=== PATIENT | female | born 1980 | race Caucasian/White ===

== ENCOUNTER → 2024-04-05 13:55 | Outpatient (BNVA) | payer OTHER, SELFPAY | PROVIDERS: Visit Provider Surgery ==

== ENCOUNTER 2024-06-11 08:00 | Outpatient (AMB) | payer OTHER, SELFPAY ==
--- NOTE | 2024-06-11 13:08 | A.OFFVIS_ITS ---
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*: Details: Start time: 12.57pm, End time: 1.42pm ?I spent 40 minutes speaking with the patient on the phone plus an additional 5 minutes reviewing and updating records for a total of 45 minutes HPI Comments Details: Previous weight loss efforts: self diets Wakes up: 2.30am, Sleeps: 8pm Breakfast: skips occasionnally crackers at 9am Lunch: 2pm (chicken and rice) Dinner: 7pm (bread or cereal) snacks: dinner Exercise: Has a treadmill at home Fluids: Coffee (1 cup/day with milk and sugar), tea: none, soda: regular Coke (2-3 cans per day), juice: none, ETOH: none PFSH Medical History (Updated 06/11/24 @ 13:12 by Sky Hayes MD) Knee pain Morbid obesity Surgical History (Updated 04/12/24 @ 09:16 by Trisha Chung CMA) Hx of section Hx of cholecystectomy Family History (Updated 04/05/24 @ 14:21 by Trisha Chung CMA) Mother Diabetes Father Diabetes Daughter No problems noted. Son Down's syndrome Social History (Updated 04/05/24 @ 14:20 by Trisha Chung CMA) Alcohol intake: never Patient Tobacco Use Status: Never used Tobacco Telehealth Telehealth Telehealth Platform: Telephone Location of provider rendering services: practice address Location of patient: address on file Patient Identification confirmed using: Name, : Yes Telehealth method: voice only Patient verbally consented to treatment: Yes Patient verbally consented to billing insurance company: Yes Patient informed of any privacy concerns related to visit: Yes Minutes spent on Phone/Video with Pt.: 47 Assessment & Plan Assessment & Plan (1) Morbid obesity: Code(s): E66.01 - Morbid (severe) obesity due to excess calories Category: Medical Plan: 1.? Plan for lap sleeve gastrectomy. If diaphragmatic or ventral hernias are present at time of surgery, these will be repaired laparoscopically as well. Risks and complications include possible conversion to an open procedure, anastomotic leak, bleeding requiring transfusion, small bowel obstruction, , DVT and pulmonary embolism, cardiac, or pulmonary complications, as termite exterminator complications such as anastomotic ulcer, insufficient weight loss and vitamin deficiencies. I emphasized the importance of close follow-up, adherence to instructions and good communication. 2. Nutritional counseling. Start with 2 CELEBRATE REBUILD protein (buy at [facility] [employer]) shakes (TWO scoops EACH in 8oz low fat unsweetened almond milk each) at 4am-6am and 7am-9am, 2 protein bars (CELEBRATE protein bars, buy at [facility]) at 10am-12pm, and 1pm-3pm, dinner at 4pm (10 forks of protein and 10 forks of salad/vegetables) AND one more protein bar after dinner at 6pm-8pm. So you do 2 protein shakes, 3 protein bars and one meal per day. Meal to include lean meat (beef, fish, pork, turkey, chicken), or british yogurt, or egg whites, or beans with a salad with olive oil and fruits (berries, pears, apples, kiwi). Avoid salt, breads, potatoes, rice, pasta, desserts. 3. You will receive a link of our software [employer] to generate an individualized nutritional and exercise plan specific for you. Please send me a screenshot of the plans you will generate 3. Each shake would be drunk slowly, like coffee in a period of 2 hours. 4. Cut each bar in 4 pieces and eat each piece in 30min ?to make each bar last 2 hours. 5. I emphasized the importance of measuring accurately the food portion and measure it when serving the food in plate 6. The meal portions include 10 full-size forks of meat and 10 full-size forks of salad. You always eat the meat portion but you can replace up to 5 forks for salad/vegetables with rice, potatoes or pasta, or a fruit ?if you like. The less you do it the better weight loss will be. 7. One full-size fork is what it can be scooped on the fork without falling aside and not what can be bit with the fork. Use regular forks like those you find in a typical restaurant. 8.? Please send me weight measurements as soon as possible and then once a week. Always include your diet and exercise plan. 9. Start treadmill with an incline of 2.0 and speed of 2.5. Increase incline by 1 every 3 min to a max incline of 8.0, stay 3min at 8.0 and then return to 2.0 and repeat same steps until calorie goal is met. Goal is to burn 2000 calories per week on exercise, which means either 300 calories daily, or 400 calories 5 days per week, or 500 calories 4 days per week, or 650 calories 3 days per week. 10.?It is important of avoiding and for at least 18 months postoperatively and has been discussed at the infosession. 11. Goal is to lose at least 1.5-2lbs per week 12. Goal to lose 10% of your weight before surgery, which is about 35lbs. Ultimate weight goal: 318lbs before surgery 13. Please follow the diet plan exactly without any change. If you don't like something about the plan or you feel hungry you need to communicate with me so I can help you revise the plan. You should not change the plan yourself. 14. To be scheduled for EGD to assess the stomach's anatomy. The possibility of biopsies was discussed. Patient needs to avoid use of NSAIDs and aspirin for 1 week prior to EGD. Risks of perforation and bleeding was discussed with the patient. This will be an outpatient procedure with IV sedation. Orders: Orders Hemoglobin A1c Today E66.01 - Morbid (severe) obesity due to excess calories H Pylori Breath Test Today E66.01 - Morbid (severe) obesity due to excess calories IRON PROFILE Today E66.01 - Morbid (severe) obesity due to excess calories Zinc Today E66.01 - Morbid (severe) obesity due to excess calories Vitamin A Today E66.01 - Morbid (severe) obesity due to excess calories TSH reflex Free T4 Today E66.01 - Morbid (severe) obesity due to excess calories Ferritin Today E66.01 - Morbid (severe) obesity due to excess calories XR chest 2V Today E66.01 - Morbid (severe) obesity due to excess calories ECG 12 lead EKG Today E66.01 - Morbid (severe) obesity due to excess calories Insulin Today E66.01 - Morbid (severe) obesity due to excess calories Complete Blood Count Auto Diff Today E66.01 - Morbid (severe) obesity due to excess calories Lipid Panel Today E66.01 - Morbid (severe) obesity due to excess calories Comprehensive Met. Panel Today E66.01 - Morbid (severe) obesity due to excess calories Vitamin B12 and Folate Today E66.01 - Morbid (severe) obesity due to excess calories C Reactive Protein Today E66.01 - Morbid (severe) obesity due to excess calories Vitamin B1 Today E66.01 - Morbid (severe) obesity due to excess calories Vitamin D 25-OH Total Today E66.01 - Morbid (severe) obesity due to excess calories US abdomen comp w elastography Today E66.01 - Morbid (severe) obesity due to excess calories FL upper GI w air Today E66.01 - Morbid (severe) obesity due to excess calories Referrals Nutrition/Dietitian Referral E66.01 - Morbid (severe) obesity due to excess calories Behavioral Health Referral E66.01 - Morbid (severe) obesity due to excess calories
[2024-06-11 13:18] VITALS: BMI 58.8
== END 2024-06-11 13:42 | disposition home or self-care (01) ==
LOC: HO.HBS 08:00
PROVIDERS: Visit Provider Surgery
DX: E66.01 Morbid (severe) obesity due to excess calories (principal)
CPT/HCPCS: 99204

== ENCOUNTER → 2024-06-11 08:00 | Outpatient (BNVA) | payer OTHER, SELFPAY | PROVIDERS: Visit Provider Surgery ==

== ENCOUNTER → 2024-11-08 09:11 | Outpatient (AMB) | payer OTHER, SELFPAY ==
--- NOTE | 2024-11-08 09:05 | MHC.WMTHER ---
Intake Intake Visit Reasons: VIDEO BH Intake Allergies No Known Allergies Allergy (Verified 06/10/24 14:57) PFSH Medical History (Updated 06/11/24 @ 13:12 by Sky Hayes MD) Knee pain Morbid obesity Surgical History (Updated 04/12/24 @ 09:16 by Trisha Chung CMA) Hx of section Hx of cholecystectomy Family History (Updated 04/05/24 @ 14:21 by Trisha Chung CMA) Mother Diabetes Father Diabetes Daughter No problems noted. Son Down's syndrome Social History (Updated 04/05/24 @ 14:20 by Trisha Chung CMA) Alcohol intake: never Patient Tobacco Use Status: Never used Tobacco Behavioral Health Assessment Weight Management Therapy Therapy Notes Details PT is a 44 years old female, who presents for initial visit to complete BH assessment as part of surgical weight loss program. Presenting Concerns Referral Source WMP-Provider. PT had initial visit with Dr. Hong on 05/2024 Reason for referral Completion of behavioral health assessment as part of process for weight-loss surgery. Precipitating Event Obesity. Living Situation Current Living Situation Rent At risk of losing current housing? No Satisfied with current living situation? Yes Comments PT lives with her partner and her 2 y/o son. Food/Weight/Diet Expectations of change The initial goal is to lose 10% of your weight before surgery, which is about 35 lbs. Ultimate weight goal: 318lbs before surgery PT started the program in May/2024 at 353Lbs Recent weight as of 11/03/2024:330Lbs. Patient target weight: 150-160 after surgery. PT wants to be able to lose weight and maintain a healthy weight. She wants to be an active mother for her child and be as healthy as possible to live as long as she can for her child who has Down syndrome and will need extra care and support. PT is implementing the following: Current meal plan: 2 shakes, 3 bars, 1 meal. Most of the days. Exercise plan: None. Scale: Yes communication w/ Provider: Yes/Friday History/Relationship with food Example of meals before starting the program: Breakfast: Lunch: Dinner: Snacks: Drinks/Liquids: History/Relationship with weight In the last 10 years, the patient's Lowest weight was and highest Social History Family history and relationship PT has been with her partner for 20 years, PT has an older daughter who is 25 y/o, and she shares her youngest son who is 2 y/o. Parents are alive, she has 3 siblings, 1 sister, 1 brother on her father's side, and 1 adopted brother who is actually a cousin. She moved to [place] with her closest family, her parents, sister w/ her . They live close and are pro-family and have great communication and relationships. 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 Developmental history and status None reported. Social support Partner, parents, siblings, daughter. Community support None. Restoration/Spirituality [employer]. Cultural/Ethnic information , from [place]. Moved to [place] 5 years ago. Legal Involvement and History Current or historical involvement with the legal system? None reported. Education Highest grade completed HS diploma and 2 Associate degree. 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 ) Wants help to find employment? No Meaningful activities crafts and republican planning, listening to podcast, reading. Financial Situation Describe current financial situation Comfortable Financial assistance? SSI (for her son.) Service Service? No Mental Health and Addiction Treatment Current/Past substance abuse? No Comments Alcohol: None Cigarettes/Tobacco: None Cannabis/Edibles: None Current/Past addictive behavior concerns? No Psychiatric history The patient denies any history of mental health treatment, including counseling, crisis intervention, or inpatient care. They also report never having been prescribed psychiatric medications. There is no current or past concern regarding suicidal ideation (SI), suicidal attempts (SA), self-harm, or harm to others. Medical and Physical Health Summary Additional Medical History not covered in history None reported Sexual History concerns None reported. Physical exam in the last year? No (During . ) Pain Screening Current pain? Yes Pain in the last few months? Yes Comments knee pain. Medications Is the patient compliant with medications? Not applicable Does the patient have Forrester Guardian in place? Not applicable Does the patient use complimentary health approaches? No Trauma/Abuse History History of trauma? No Questionnaires PHQ-9 Over the last 2 weeks, how often have you been bothered by any of the following problems? 1. Little interest or pleasure in doing things: nearly every day 2. Feeling down, depressed, or hopeless: not at all 3. Trouble falling or staying asleep, or sleeping too much: not at all 4. Feeling tired or having little energy: nearly every day 5. Poor appetite or overeating: several days 6. Feeling bad about yourself - or that you are a failure or have let yourself or your family down: not at all 7. Trouble concentrating on things, such as reading the newspaper or watching television: not at all 8. Moving or speaking so slowly that other people could have noticed. Or the opposite - being so fidgety or restless that you have been moving around a lot more than usual: not at all 9. Thoughts that you would be better off or of hurting yourself in some way: not at all Total score: 7 Depression Screening Interpretation: Positive (From new PT pack scanned on . New one will be administered in next visit. ) Depression Screening Done: Yes Source: Developed by Drs. Moses Vizcaino, Kamryn Gong, Benjamin Enriquez and colleagues, with an educational abhay from [employer]. Binge Eating Scale Group 1 A. I don't feel self-conscious about my wt. or body size when I'm with others. B. I feel concerned about how I look to others, but it normally does not make me fell disappointed with myself C. I do get self-conscious about my appearance and wt. which makes me feel disappointed in myself. D. I feel very self-conscious about my wt. and frequently I feel intense shame and disgust for myself. I try to avoid social contacts because of my self-consciousness. Response Group 1: B Group 2 A. I don't have any difficulty eating slowly in the proper manner. B. Although I seem to gobble down foods, I don't end up feeling stuffed because of eating to much. C. At times, I tend to eat quickly and then, I feel uncomfortably full afterwards. D. I have the habit of bolting down my food, without really chewing it. When this happens I usually feel uncomfortably stuffed because I've eaten to much. Response Group 2: A Group 3 A. I feel capable to control my eating urges when I want to. B. I feel like I have failed to control my eating more than the average person. C. I feel utterly helpless when it comes to feeling in control of my eating urges. D. Because I feel so helpless about controlling my eating I have become very desperate about trying to get control. Response Group 3: B Group 4 A. I don't have the habit of eating when I'm bored. B. I sometimes eat when I'm bored, but often I'm able to get busy and get my mind off food. C. I have a regular habit of eating when I'm bored, but occasionally, I can use some other activity to get my mind off eating. D. I have a strong habit of eating when I'm bored. Nothing seems to help me breath the habit. Response Group 4: B Group 5 A. I'm usually physically hungry when I eat something. B. Occasionally, I eat something on impulse even though I really am not hungry. C. I have the regular habit of eating foods, that I might not really enjoy, to satisfy a hungry feeling even though physically, I don't need the food. D. Although I'm not physically hungry, I get a hungry feeling in my mouth that only seems to be satisfied when I eat a food, like sandwich, that fills my mouth. Sometimes, when I eat the food to satisfy my mouth hunger, I then spit the food out so I won't gain weight. Response Group 5: B Group 6 A. I don't feel any guilt or self-hate after I overeat. B. After I overeat, occasionally I feel guilt or self-hate. C. Almost all the time I experience strong guilt or self-hate after I overeat. Response Group 6: A Group 7 A. I don't lose total control of my eating when dieting even after periods when I overeat. B. Sometimes when I eat a forbidden food on a diet, I feel like I blew it and eat even more. C. Frequently, I have the habit of saying to myself, I've blown it now, why not go all the way, when I overeat on a diet. When that happens I eat more. D. I have a regular habit of starting a strict diets for myself but I break the diets by going on an eating binge. My life seems to be either a feast or famine. Response Group 7: A Group 8 A. I rarely eat so much food that I feel uncomfortably stuffed afterwards. B. Usually about once a month, I each such a quantity of food, I end up feeling very stuffed. C. I have regular periods during the month when I eat large amounts of food, either at mealtime or at snacks. D. I eat so much food that I regularly feel quite uncomfortable after eating and sometimes a bit nauseous. Response Group 8: C Group 9 A. My level of calorie intake does not go up very high or go down very low on a regular basis. B. Sometimes after I overeat, I will try to reduce my caloric intake to almost nothing to compensate for the excess calories I've eaten. C. I have a regular habit of overeating during the night. It seems that my routine is not to be hungry in the morning but overeat in the evening. D. In my adult years, I have had week-long periods where I practically starve myself. This follows periods when I overeat. It seems I live a life of either feast or famine. Response Group 9: C Group 10 A. I usually am able to stop eating when I want to. I know when enough is enough. B. Every so often, I experience a compulsion to eat which I can't seem to control. C. Frequently, I experience strong urges to eat which I seem unable to control, but at other times I can control my eating urges. D. I feel incapable of controlling urges to eat. I have a fear of not being able to stop eating voluntarily. Response Group 10: A Group 11 A. I don't have any problem stopping eating when I feel full. B. I usually can stop eating when I feel full but occasionally overeat leaving me feeling uncomfortably stuffed. C. I have a problem stopping eating once I start and usually I feel uncomfortably stuffed after I eat a meal. D. Because I have a problem not being able to stop eating when I want, I sometimes have to induce vomiting to relieve my stuffed feeling. Response Group 11: A Group 12 A. I seem to eat just as much when I'm with others, Family social gatherings as when I'm by myself. B. Sometimes, when I'm with other persons, I don't eat as much as I want to eat because I'm self-conscious about my eating. C. Frequently, I eat only a small amount of food when others are present, because I'm very embarrassed about my eating. D. I feel so ashamed about overeating that I pick times to overeat when I know no one will see me. I feel like a closet eater. Response Group 12: A Group 13 A. I eat three meals a day with only an occasional between meal snack. B. I eat 3 meals a day, but I also normally snack between meals. C. When I am snacking heavily, I get in the habit of skipping regular meals. D. There are regular periods when I seem to be continually eating, with no planned meals. Response Group 13: D Group 14 A. I don't think much about trying to control unwanted eating urges. B. At least some of the time, I feel my thoughts are pre-occupied with trying to control my eating urges. C. I feel that frequently I spend much time thinking about how much I ate or about trying not to eat anymore. D. It seems to me that most of my waking hours are pre-occupied by thoughts about eating or not eating. I feel like I'm constantly struggling not to eat. Response Group 14: A Group 15 A. I don't think about food a great deal. B. I have strong craving for food but they last only for brief periods of time. C. I have days when I can't seem to think about anything else but food. D. Most of my days seem to be pre-occupied with thoughts about food. I feel like I live to eat. Response Group 15: A Group 16 A. I usually know whether or not I'm physically hungry. I take the right portion of food to satisfy me. B. Occasionally, I feel uncertain about knowing whether or not I'm physically hungry. A these times it's hard to know how much food I should take to satisfy me. C. Even though I might know how many calories I should eat, I don't have any idea what is a normal amount of food for me. Response Group 16: C Binge Eating Score: 13 Score less than 17 Minimal Risk Score between 18-26 Moderate Risk Score between 27-46 High Risk Assessment & Plan Assessment & Plan (1) Morbid obesity: Code(s): E66.01 - Morbid (severe) obesity due to excess calories (2) Adjustment disorder, unspecified: Code(s): F43.20 - Adjustment disorder, unspecified (3) Problems related to inappropriate diet and eating habits: Code(s): Z72.4 - Inappropriate diet and eating habits Plan The patient is not yet cleared and will return in two weeks to continue the behavioral health assessment. A new PHQ-9 will be administered to ensure accurate results. Next bienvenido: 11/22/2024 at 9am, Telehealth Telehealth Telehealth [facility]health [facility] Location of provider rendering services: other Location of patient: address on file Patient Identification confirmed using: Name, : Yes Telehealth method: voice only Patient verbally consented to treatment: Yes Patient verbally consented to billing insurance company: Yes Patient informed of any privacy concerns related to visit: Yes Coding Level of Care Code New Pt Tele Psy Diag Brigido ([id number]) Patient Type New Diagnoses Morbid obesity E66.01 Adjustment disorder, unspecified F43.20 Problems related to inappropriate diet and eating habits Z72.4 Time Spent (min) 55
--- OUTSIDE RECORDS SUMMARY | 2024-11-08 09:47 | XMS_ITS | Continuity of Care Document ---
Author Organization [facility] vices Address [address] [place] [address] Phone Care Team Providers Care Development System Efficiency Manager Name Role Phone Unavailable Unavailable Unavailable Procedures Procedure Date OFFICE/OUTPT Visit EST-EPFHx,EPFExam, Lo w MDM 15 Minutes Advance Directives Directive Yes / No Effective Date File Name No Information Encounters Encounter Description Practice Location Reason(s) For Visit Diagnoses Date Provider Providers Copied on Encounter OFFICE/OUTPT Visit EST-EPFHx,EPF Exam, Low MDM 15 Minutes [facility], [address] [place] [address], [id number], [place] tel:[phone] [facility] Podiatry Heel Pain (chief complaint) Body mass index (BMI) 50-59.9 , adultPlantar fascial fibromatosis 0 No Information Family History Family Member Type Diagnosis Age At Onset No Information Payers Payer name Insurance type Covered democrat ID Authoriza tion(s) Self Pay ins [id number] [...]
--- OUTSIDE RECORDS SUMMARY | 2024-11-08 09:47 | XMS_ITS | Clinical Summary ---
Author Organization [employer] Address [address] [place] [address] [address] [place] [address] Care Team Providers Care Cargo Router Name Role Phone Olivia Almaguer VEE Primary Care Provider [phone] Medications Alcohol Swabs (Alcohol Pads) 70 % pads USE TO CHECK BLOOD SUGARS 4 TIMES A DAY. 2 Active acetaminophen (Tylenol 8 Hour) 650 MG ER tablet Take 650 mg by mouth every 8 (eight) hours if needed. 2 Active Aspirin Low Dose 81 MG EC tablet Take 162 mg by mouth in the morning. 2 Active FREESTYLE LITE test strip USE TO CHECK BLOOD SUGARS 4 TIMES A DAY. 2 Active ibuprofen 800 MG tablet Take 800 mg by mouth every 8 (eight) hours. 2 Active FreeStyle lancets USE TO CHECK BLOOD SUGARS 4 TIMES A DAY. 2 Active oxyCODONE (Oxy-IR) 5 MG immediate release capsule TAKE 1 CAPSULE BY MOUTH EVERY 6 HOURS NEEDED FOR PAIN 2 Active Vit-Fe Fumarate-FA (PNV Plus Multivitamin) 27-1 MG tablet Take 1 tablet by mouth at bed time. 1 Active Vit-Fe Fumarate-FA (M- Plus) 27-1 MG tablet Take 1 tablet by mouth in the morning. 2 Active Senna-Time 8.6 MG tablet TAKE 2 TABLET BY MOUTH DAILY AT BEDTIME NEEDED FOR CONSTIPATION 2 Active Immunizations Name Administration Dates Next Due Influenza injectable quadrivalent preservative f ree 07/23/2021 Pfizer Covid-19 Vaccine 12+ 07/23/2021 Social History Tobacco Use Types Packs/Day Years Used Date Smoking Tobacco: Never Assessed Housing Stability Answer Date Recorded What is your housing situation today? I have latanya herbert 05/24/[address] you li ve. Do you have problems with any of the following? None of the above 05/24/2024 Food Insecurity Answer Date Recorded Within the past 12 months, y ou worried that your food would run out before you got money to buy more: Never True 05/24/2024 Within the past 12 months,th e food you bought just didn't last and you didn't have enough money to get more: Never True Transportation Answer Date Recorded In the past 12 months, has l ack of transportation kept you from medical appts, meetings, work or from getting things needed for daily living? No 05/24/2024 Utilities Answer Date Recorded In the past 12 months, has t he electric, gas, oil or water company threatened to shut off services in your home? No 05/24/2024 Internet Access Answer Date Recorded Internet Access Q1 Yes 05/24/2024 Internet Access Q2 Not on file 05/24/2024 Comments Unknown Sex and Gender Information Value Date Recorded Sex Assigned at Female 06/24/2022 10:37 AM EDT Legal Sex Female 10:37 AM EDT Gender Identity Female 06/24/2022 10:37 AM EDT Sexual Orientation Straight 06/24/2022 10 :37 AM EDT Last Filed Vital Signs Vital Sign Reading Time Taken Comments Blood Pressure 112/80 07/23/2021 12:11 AM EST Pulse 84 07/23/2021 12:11 AM EST Temperature - - Respiratory Rate - - Oxygen Saturation - - Inhaled Oxygen Concentration - - Weight 155 kg (341 lb 6.3 oz) 07/23/2021 12:11 A M EST Height - - Body Mass Index - - Plan of Treatment Health Maintenance Due Date Last Done Comments Depression Screening 1982 Alcohol/Substance Use Screening 1994 Tobacco Screening 1994 Family Planning (PISQ) 1997 Hepatitis C Screening 2000 DTaP/Tdap/Td Vaccines (1 - Tdap) 2001 Hepatitis B Vaccines (1 of 3 - 19+ 3-dose series) 2001 Mammogram 2022 Pap Smear 12/15/2023 12/14/2020 COVID-19 Vaccine (2 - 2023-2 5 season) 2024 07/23/2021 Influenza Vaccine (#1) 2024 07/23/2021 SDOH Screening 05/24/2025 05/24/2024 Cervical Cancer Screening 12/14/2025 HPV/Cotest 12/14/2025 12/14/2020 Zoster Vaccines (1 of 2) 2032 RSV Patients and Pa tients Aged 60 years or older (1 - 1-dose 75+ series) 2057 HIV Screening Completed 12/14/2020 HIB Vaccines Aged Out No longer eligi ble based on patient's age to complete this topic HPV Vaccines Aged Out No longer eligi ble based on patient's age to complete this topic Hepatitis A Vaccines Aged Out No long er eligible based on patient's age to complete this topic IPV Vaccines Aged Out No longer eligi ble based on patient's age to complete this topic Meningococcal Vaccine Aged Out No liyah rina eligible based on patient's age to complete this topic Pneumococcal Vaccine: Pediat rics (0 to 5 Years) and At-Risk Patients (6 to 49) Years) Aged Out No longer elig ible based on patient's age to complete this topic RSV under 20 months Aged Out No longe r eligible based on patient's age to complete this topic Rotavirus Vaccines Aged Out No longer eligible based on patient's age to complete this topic Procedures Procedure Name Priority Date/Time Associated Diagnosis Comments HPV MRNA E6/E7 Routine 12/14/2020 9:14 AM EDT THINPREP IMAGING SYSTEM PAP Routine 12/14/2020 9:14 AM EDT HIV 1/2 ANTIGEN/ANTIBODY, FOURTH GENERATION W/RFL Routine 12/14/2020 8:06 AM EDT from Last 3 Months or Most Recently Relevant to Health Maintenance Results * THINPREP TIS PAP (12/14/2020 9:14 AM EDT) Clinical Information: None given [facility] COMMENT SEE COMMENT [facility] Comment: EXPLANATORY NOTE: ? The Pap is a screening test for cervical cancer. It is ?? not a diagnostic test and is subject to false negative ?? and false positive results. It is most reliable when a ?? satisfactory sample, regularly obtained, is submitted ?? with relevant clinical findings and history, and when ?? the Pap result is evaluated along with historic and ?? current clinical information. ?? COMMENT: This Pap test has been evaluated with computer assisted technology. [facility] Rack Cleaner : SEE COMMENT [facility] Comment: CMG, CT(ASCP) CT screening location: [address] ??[id number] Interpretation/R esult: Negative for intraepithelial lesion or malignancy. [facility] LMP: NONE GIVEN [facility] Prev. BX: NONE [facility]IVEN [facility] Prev. PAP: NONE GIVEN [facility] Review Rack Cleaner : SEE COMMENT [facility] Comment: NSS, CT(ASCP) CT screening location: [address] ??[id number] SOURCE: None given [facility] Statement Of Adequacy: SEE COMMENT [facility] Comment: Satisfactory for evaluation. Endocervical/transformation zone component present. Age and/or menstrual status not provided 12/14/2020 9:14 AM EDT Nadia Fong MD LAB PATHOLOGY ORDERABLES Celsa dutta Result [facility] [address] * HPV mRNA E6/E7 (12/14/2020 9:14 AM EDT) HPV nRNA E6/E7 Not Detected Not Detected [facility] Comment: Methodology: Client Technical Specialist-Mediated Amplification This assay detects E6/E7 viral messenger RNA (mRNA) from 14 high-risk HPV types (16,18,31,33,35,39,45,51,52,56,58,59,66,68). ? The analytical performance characteristics of this assay have been determined by [employer]. The modifications have not been cleared or approved by the FDA. This assay has been validated pursuant to the CLIA regulations and is used for clinical purposes. ?? For additional information, please refer to http://[employer].CropUp/faq/ZEE256p8 (This link if provided for information/ educational purposes only.) 12/14/2020 9:14 AM EDT Nadia Fong MD LAB BLOOD ORDERABLES Final Re sult Performing Organization Address [facility] Phone Number [facility] [address] * HIV 1/2 ANTIGEN/ANTIBODY,FOURTH GENERATION W/RFL (12/14/2020 8:06 AM EDT) HIV-1/2 ANTIGEN AND ANTIBODIES, 4TH GENERATION W/ REFLEX NON-REACT MEHRAN NON-REACT MEHRAN [facility] Comment: HIV-1 antigen and HIV-1/HIV-2 antibodies were not detected. There is no laboratory evidence of HIV infection. ?? PLEASE NOTE: This information has been disclosed to you from records whose confidentiality may be protected by state law. ??If your state requires such protection, then the state law prohibits you from making any further disclosure of the information without the specific written consent of the person to whom it pertains, or as otherwise permitted by law. A general authorization for the release of medical or other information is NOT sufficient for this purpose. ? For additional information please refer to http://[email or web address].protected-networks.com/faq/GMX704 (This link is being provided for informational/ educational purposes only.) ? The performance of this assay has not been clinically validated in patients less than 2 years old. ?? 12/14/2020 8:06 AM EDT Nadia Fong MD LAB BLOOD ORDERABLES Final Re sult Performing Organization Address [facility] de Phone Number [facility] [address] from Last 3 Months or Most Recently Relevant to Health Maintenance Insurance [place] C3 Care Teams Cargo Router Relationship Specialty Start Date End Date Olivia Almaguer NP [address] [place] [id number] PCP - General Family Medicine 09/23/23
== END ==
LOC: HO.HBST 09:11
PROVIDERS: Visit Provider Counselor Mental Health
DX: E66.01 Morbid (severe) obesity due to excess calories (principal); F43.20 Adjustment disorder, unspecified; Z72.4 Inappropriate diet and eating habits
CPT/HCPCS: 90791

== ENCOUNTER → 2024-11-22 09:17 | Outpatient (AMB) | payer SELFPAY ==
--- NOTE | 2024-11-22 09:05 | A.OFFWM_ITS ---
Intake Intake Visit Reasons: VIDEO Intake Part 2 Allergies No Known Allergies Allergy (Verified 11/08/24 16:08) [facility] Medical History (Updated 06/11/24 @ 13:12 by Sky Hayes MD) Knee pain Morbid obesity Surgical History (Updated 04/12/24 @ 09:16 by Trisha Chung CMA) Hx of section Hx of cholecystectomy Family History (Updated 04/05/24 @ 14:21 by Trisha Chung CMA) Mother Diabetes Father Diabetes Daughter No problems noted. Son Down's syndrome Social History (Updated 04/05/24 @ 14:20 by Trisha Chung CMA) Alcohol intake: never Patient Tobacco Use Status: Never used Tobacco Behavioral Health Assessment Weight Management Therapy Therapy Notes Details The patient is a 44-year-old female presenting for her second visit to complete a behavioral health (BH) assessment as part of a surgical weight loss program. The patient expresses interest in weight loss surgery to improve her overall health. Her goal is to lose weight and maintain a healthy weight in order to be an active and engaged mother for her child. She emphasizes the importance of maintaining good health to support her child, who has Down syndrome and will require ongoing care and support. The patient denies any history of mental health treatment, past hospitalizations, or behavioral health crises. She also reports no history of, or current concerns related to, suicidal ideation (SI), suicidal attempts (SA), self-harm, or harm to others. There is no reported history of substance use. Additionally, the patient does not demonstrate signs of stress-related emotional eating, and her scores on the Binge Eating Scale (BES) suggest a low risk for binge eating behavior. The PHQ-9 scores show no active symptoms of depression. A mental status examination indicates that the patient?s cognitive and emotional functioning is within normal limits, suggesting no impairment in daily functioning. At this time, the patient is cleared from a behavioral health standpoint. Presenting Concerns Referral Source WMP-Provider. PT had initial visit with Dr. Hong on 05/2024 Reason for referral Completion of behavioral health assessment as part of process for weight-loss surgery. Precipitating Event Obesity. Living Situation Current Living Situation Rent At risk of losing current housing? No Satisfied with current living situation? Yes Comments PT lives with her partner and her 2 y/o son. Food/Weight/Diet Expectations of change The initial goal is to lose 10% of your weight before surgery, which is about 35 lbs. Ultimate weight goal: 318lbs before surgery PT started the program in May/2024 at 353Lbs Recent weight as of 11/03/2024:330Lbs. Weight as of 11/18/2024: 323Lbs Patient target weight: 150-160 after surgery. PT wants to be able to lose weight and maintain a healthy weight. She wants to be an active mother for her child and be as healthy as possible to live as long as she can for her child who has Down syndrome and will need extra care and support. PT is implementing the following: Current meal plan: 2 shakes, 3 bars, 1 meal. Most of the days. Exercise plan: has a treadmill. Scale: Yes communication w/ Provider: Yes/Friday History/Relationship with food PT reports she used to skip meals most days, and was having a big meal around 3pm. Also would drink soda all day and would be snaking on sweets all day. PT states when she feels stressed she tends to put something on her mouth. As a she tend to have multiple carbs in 1 meal. Example of meals before starting the program: Breakfast: skip. If not, then would had ham and cheese sandwich (about 1/2 Lbs of bread) Lunch: skip. Dinner: @3pm Rice/beans/meat, pasta, soups. Snacks: honeybuns, Oreo cookies, Cheetos. Drinks/Liquids: 2 2Lt bottle of soda at day. 3 coffees at day with milk and sugar. (1 cup at 3am, another at noon and then around 3pm) When working she has 3 breaks, she she would eat the followinam break: a coke and a honeybun. 9am break: a coke and a pack of Oreos or Cheetos 11am break: 1 coke and Cheetos History/Relationship with weight PT denies being overweight or obese in childhood and At age 18 she was around 130-140Lbs She started gaining substantial weight around 19 y/o when she got with first child. In the last 10 years, the patient's Lowest weight was 330Lbs about 6 years ago however she is currently 232Lbs as of today and highest 360Lbs History/Relationship with dieting Food swaps. Self-diets, would lose 5Lbs in 1-2 weeks, then after not losing anymore would stop the diet. Binge Eating Do you frequently eat large amounts of food in short periods of time, not fee ling physically hungry? No Do you feel out of control when you eat a large amount of food in a short period of time? No Do you eat large amounts of food rapidly and typically alone? No Night Eating Do you wake up at least once during the night to eat? No If you wake up in the night, do you find that it is necessary to eat something in order to fall back asleep? No Do you have little or no appetite in the morning and feel very hungry in the evening, often overeating between dinner and when you go to bed? Yes Social History Family history and relationship PT has been with her partner for 20 years, PT has an older daughter who is 25 y/o, and she shares her youngest son who is 2 y/o. Parents are alive, she has 3 siblings, 1 sister, 1 brother on her father's side, and 1 adopted brother who is actually a cousin. She moved to [place] with her closest family, her parents, sister w/ her . They live close and are pro-family and have great communication and relationships. 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 Developmental history and status None reported. Social support Partner, parents, siblings, daughter. Community support None. Tenriism/Spirituality [employer]ec[employer]. Cultural/Ethnic information , from [place]. Moved to [place] 5 years ago. Legal Involvement and History Current or historical involvement with the legal system? None reported. Education Highest grade completed HS diploma and 2 Associate degree. 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 ) Wants help to find employment? No Meaningful activities crafts and green party planning, listening to podcast, reading. Financial Situation Describe current financial situation Comfortable Financial assistance? SSI (for her son.) Service Service? No Mental Health and Addiction Treatment Current/Past substance abuse? No Comments Alcohol: None Cigarettes/Tobacco: None Cannabis/Edibles: None Current/Past addictive behavior concerns? No Psychiatric history The patient denies any history of mental health treatment, including counseling, crisis intervention, or inpatient care. They also report never having been prescribed psychiatric medications. There is no current or past concern regarding suicidal ideation (SI), suicidal attempts (SA), self- harm, or harm to others. Medical and Physical Health Summary Additional Medical History not covered in history None reported Sexual History concerns None reported. Physical exam in the last year? No (During . ) Pain Screening Current pain? Yes Pain in the last few months? Yes Comments knee pain. Medications Is the patient compliant with medications? Not applicable Does the patient have Forrester Guardian in place? Not applicable Does the patient use complimentary health approaches? No Trauma/Abuse History History of trauma? No Questionnaires PHQ-9 Over the last 2 weeks, how often have you been bothered by any of the following problems? 1. Little interest or pleasure in doing things: not at all 2. Feeling down, depressed, or hopeless: not at all 3. Trouble falling or staying asleep, or sleeping too much: not at all 4. Feeling tired or having little energy: not at all 5. Poor appetite or overeating: not at all 6. Feeling bad about yourself - or that you are a failure or have let yourself or your family down: not at all 7. Trouble concentrating on things, such as reading the newspaper or watching television: not at all 8. Moving or speaking so slowly that other people could have noticed. Or the opposite - being so fidgety or restless that you have been moving around a lot more than usual: not at all 9. Thoughts that you would be better off or of hurting yourself in some way: not at all Total score: 0 Depression Screening Interpretation: Negative Depression Screening Done: Yes 07007 - PHQ-9 Billing: Yes Source: Developed by Drs. Moses Vizcaino, Kamryn Gong, Benjamin Enriquez and colleagues, with an educational abhay from [employer]. Binge Eating Scale Group 1 A. I don't feel self-conscious about my wt. or body size when I'm with others. B. I feel concerned about how I look to others, but it normally does not make me fell disappointed with myself C. I do get self-conscious about my appearance and wt. which makes me feel dis appointed in myself. D. I feel very self-conscious about my wt. and frequently I feel intense shame and disgust for myself. I try to avoid social contacts because of my self-c onsciousness. Response Group 1: B Group 2 A. I don't have any difficulty eating slowly in the proper manner. B. Although I seem to gobble down foods, I don't end up feeling stuffed because of eating to much. C. At times, I tend to eat quickly and then, I feel uncomfortably full afterwards. D. I have the habit of bolting down my food, without really chewing it. When this happens I usually feel uncomfortably stuffed because I've eaten to much. Response Group 2: A Group 3 A. I feel capable to control my eating urges when I want to. B. I feel like I have failed to control my eating more than the average person. C. I feel utterly helpless when it comes to feeling in control of my eating urges. D. Because I feel so helpless about controlling my eating I have become very desperate about trying to get control. Response Group 3: B Group 4 A. I don't have the habit of eating when I'm bored. B. I sometimes eat when I'm bored, but often I'm able to get busy and get my mind off food. C. I have a regular habit of eating when I'm bored, but occasionally, I can use some other activity to get my mind off eating. D. I have a strong habit of eating when I'm bored. Nothing seems to help me breath the habit. Response Group 4: B Group 5 A. I'm usually physically hungry when I eat something. B. Occasionally, I eat something on impulse even though I really am not hungry. C. I have the regular habit of eating foods, that I might not really enjoy, to satisfy a hungry feeling even though physically, I don't need the food. D. Although I'm not physically hungry, I get a hungry feeling in my mouth that only seems to be satisfied when I eat a food, like sandwich, that fills my mouth. Sometimes, when I eat the food to satisfy my mouth hunger, I then spit the food out so I won't gain weight. Response Group 5: B Group 6 A. I don't feel any guilt or self-hate after I overeat. B. After I overeat, occasionally I feel guilt or self-hate. C. Almost all the time I experience strong guilt or self-hate after I overeat. Response Group 6: A Group 7 A. I don't lose total control of my eating when dieting even after periods when I overeat. B. Sometimes when I eat a forbidden food on a diet, I feel like I blew it and eat even more. C. Frequently, I have the habit of saying to myself, I've blown it now, why not go all the way, when I overeat on a diet. When that happens I eat more. D. I have a regular habit of starting a strict diets for myself but I break the diets by going on an eating binge. My life seems to be either a feast or famine. Response Group 7: A Group 8 A. I rarely eat so much food that I feel uncomfortably stuffed afterwards. B. Usually about once a month, I each such a quantity of food, I end up feeling very stuffed. C. I have regular periods during the month when I eat large amounts of food, either at mealtime or at snacks. D. I eat so much food that I regularly feel quite uncomfortable after eating and sometimes a bit nauseous. Response Group 8: C Group 9 A. My level of calorie intake does not go up very high or go down very low on a regular basis. B. Sometimes after I overeat, I will try to reduce my caloric intake to almost nothing to compensate for the excess calories I've eaten. C. I have a regular habit of overeating during the night. It seems that my routine is not to be hungry in the morning but overeat in the evening. D. In my adult years, I have had week-long periods where I practically starve myself. This follows periods when I overeat. It seems I live a life of either feast or famine. Response Group 9: C Group 10 A. I usually am able to stop eating when I want to. I know when enough is enough. B. Every so often, I experience a compulsion to eat which I can't seem to control. C. Frequently, I experience strong urges to eat which I seem unable to control, but at other times I can control my eating urges. D. I feel incapable of controlling urges to eat. I have a fear of not being able to stop eating voluntarily. Response Group 10: A Group 11 A. I don't have any problem stopping eating when I feel full. B. I usually can stop eating when I feel full but occasionally overeat leaving me feeling uncomfortably stuffed. C. I have a problem stopping eating once I start and usually I feel uncomfortably stuffed after I eat a meal. D. Because I have a problem not being able to stop eating when I want, I sometimes have to induce vomiting to relieve my stuffed feeling. Response Group 11: A Group 12 A. I seem to eat just as much when I'm with others, Family social gatherings as when I'm by myself. B. Sometimes, when I'm with other persons, I don't eat as much as I want to eat because I'm self-conscious about my eating. C. Frequently, I eat only a small amount of food when others are present, because I'm very embarrassed about my eating. D. I feel so ashamed about overeating that I pick times to overeat when I know no one will see me. I feel like a closet eater. Response Group 12: A Group 13 A. I eat three meals a day with only an occasional between meal snack. B. I eat 3 meals a day, but I also normally snack between meals. C. When I am snacking heavily, I get in the habit of skipping regular meals. D. There are regular periods when I seem to be continually eating, with no planned meals. Response Group 13: D Group 14 A. I don't think much about trying to control unwanted eating urges. B. At least some of the time, I feel my thoughts are pre-occupied with trying to control my eating urges. C. I feel that frequently I spend much time thinking about how much I ate or about trying not to eat anymore. D. It seems to me that most of my waking hours are pre-occupied by thoughts about eating or not eating. I feel like I'm constantly struggling not to eat. Response Group 14: A Group 15 A. I don't think about food a great deal. B. I have strong craving for food but they last only for brief periods of time. C. I have days when I can't seem to think about anything else but food. D. Most of my days seem to be pre-occupied with thoughts about food. I feel like I live to eat. Response Group 15: A Group 16 A. I usually know whether or not I'm physically hungry. I take the right portion of food to satisfy me. B. Occasionally, I feel uncertain about knowing whether or not I'm physically hungry. A these times it's hard to know how much food I should take to satisfy me. C. Even though I might know how many calories I should eat, I don't have any idea what is a normal amount of food for me. Response Group 16: C Binge Eating Score: 13 Score less than 17 Minimal Risk Score between 18-26 Moderate Risk Score between 27-46 High Risk Assessment & Plan Assessment & Plan (1) Morbid obesity: Code(s): E66.01 - Morbid (severe) obesity due to excess calories (2) Adjustment disorder, unspecified: Code(s): F43.20 - Adjustment disorder, unspecified (3) Problems related to inappropriate diet and eating habits: Code(s): Z72.4 - Inappropriate diet and eating habits Plan The patient has been cleared from a behavioral health standpoint and is ready for submission. She is scheduled to return for follow-up in 2 to 4 weeks post- op. Telehealth Telehealth Telehealth Platform: [facility] Location of provider rendering services: practice address Location of patient: address on file Patient Identification confirmed using: Name, : Yes Telehealth method: voice only Patient verbally consented to treatment: Yes Patient informed of any privacy concerns related to visit: Yes Minutes spent on Phone/Video with Pt.: 45 Coding Level of Care Code Established Pt Tele Psytx 45 mins (79236) Patient Type Established Diagnoses Morbid obesity E66.01 Adjustment disorder, unspecified F43.20 Problems related to inappropriate diet and eating habits Z72.4 Additional Codes PHQ-9 - 60877 - PHQ-9 Billing: Yes ([id number]) Time Spent (min) 45
== END ==
PROVIDERS: Visit Provider Counselor Mental Health
DX: F43.20 Adjustment disorder, unspecified (principal); Z72.4 Inappropriate diet and eating habits; E66.01 Morbid (severe) obesity due to excess calories
CPT/HCPCS: 90834

== ENCOUNTER 2025-01-07 08:44 | Outpatient (REF) | payer OTHER, SELFPAY ==
--- NOTE | ~2025-01-07 | US_ITS ---
EXAMINATION: US ABDOMEN COMPLETE WITH LIVER ELASTOGRAPHY HISTORY: E66.01 - Morbid (severe) obesity due to excess calories TECHNIQUE: Real-time grayscale ultrasound imaging of the abdomen was performed and images were reviewed. COMPARISON: There are no prior studies for comparison. FINDINGS: Liver: The right lobe of the liver measures 18.2 cm in size. The left lobe of the liver measures 11.5 cm in size. The liver demonstrates mildly increased echotexture, consistent with steatosis. No focal mass or intrahepatic biliary ductal dilatation is identified. There is normal hepatopedal flow in the portal vein. Ultrasound elastography of the liver was performed with 10 separate measurements of the liver parenchyma with the patient in the supine position. Measurements were obtained approximately 2 cm below [employer]'s capsule and perpendicular to the capsule. Images are of satisfactory quality. The median shear wave velocity is 1.69 m/s. The interquartile range/median (IQR/median) is 0.05. Gallbladder and biliary tree: The gallbladder is surgically absent. The common bile duct is normal in caliber measuring 3 mm. Kidneys: The right kidney measures 11.1 cm in length. The left kidney measures 12.1 cm in length. The kidneys are unremarkable, without evidence of masses, hydronephrosis, or calculi. Pancreas: The pancreatic head, neck, and body are unremarkable. The pancreatic tail is obscured by bowel gas. Spleen: The spleen is normal in size and contour, measuring 11.5 cm in length. Abdominal aorta and inferior vena cava: The visualized portions of the abdominal aorta and inferior vena cava are normal in caliber. There is no free fluid in the abdomen. US/US abdomen comp w elastography IMPRESSION: Hepatomegaly and mild hepatic steatosis. The median shear wave velocity in the liver is 1.69 m/s, corresponding to a median liver stiffness of 8.74 kPa. The IQR/median value is 0.05. This is indicative of a quality data set. Findings are indicative of a low elastography value which rules out advanced chronic liver disease in asymptomatic patients. REFERENCE: Society of Radiologists in Ultrasound Liver Stiffness Thresholds (2019): LIVER STIFFNESS THRESHOLDS: *Shear wave velocity less than 1.3 m/s (Liver Stiffness equal or less than 5 kPa): High probability of being normal. *Shear wave velocity less than 1.7 m/s (Liver Stiffness less than 9 kPa): In the absence of other known clinical signs, rules out compensated advanced chronic liver disease. *Shear wave velocity between 1.7-2.1 m/s (Liver Stiffness 9-13 kPa): Suggestive of compensated advanced chronic liver disease but need further test for confirmation. *Shear wave velocity between 2.1-2.4 m/s (Liver Stiffness 13-17 kPa): Rules in compensated advanced chronic liver disease. *Shear wave velocity greater than 2.4 m/s (Liver Stiffness over 17 kPa): Suggestive of clinically significant portal hypertension. QUALITY OF DATA SET: *IQR/Median value equal or less than 0.15 implies a quality data set. *IQR/Median value over 0.15 implies a poor quality data set. SIGNIFICANT CHANGE FROM PRIOR EXAM: Significant change if liver stiffness measurement is 10% or greater from prior exam. OTHER CONSIDERATIONS: The stage of liver fibrosis may be overestimated in the setting of acute hepatitis, liver inflammation, elevated liver function tests, hepatic vascular congestion, obstructive cholestasis, non-fasting state, and infiltrative diseases such as amyloidosis and lymphoma. In some patients with NAFLD, the liver stiffness thresholds for compensated advanced chronic liver disease may be lower. In causes other than viral hepatitis and NAFLD, liver stiffness thresholds are not well established. Electronically signed by: Moses Ibarra MD 01/07/2025 09:53 AM EDT
--- NOTE | ~2025-01-07 | XR_ITS ---
EXAMINATION: XR CHEST 2 VIEWS HISTORY: E66.01 - Morbid (severe) obesity due to excess calories COMPARISON: There are no prior studies for comparison. FINDINGS: PA and lateral views of the chest are submitted. There is increased density superimposed on the spine on the lateral view suggestive of lower lobe pneumonia. This is not well visualized on the PA view. There is no pleural effusion, pneumothorax, or pulmonary vascular congestion. The heart is normal in size. There is degenerative disc disease of the spine. XR/XR chest 2V IMPRESSION: Possible lower lobe pneumonia, best seen on the lateral view. Follow-up is recommended to document resolution. Electronically signed by: Moses Ibarra MD 01/07/2025 10:25 AM EDT
--- OUTSIDE RECORDS SUMMARY | 2025-01-07 09:00 | XMS_ITS | Continuity of Care Document ---
Author Organization [facility] Address [address] [place] [address] Phone Care Team Providers Care Wharf Tender Helper Name Role Phone Unavailable Unavailable Unavailable Procedures Procedure Date OFFICE/OUTPT Visit EST-EPFHx,EPFExam, Lo w MDM 15 Minutes Advance Directives Directive Yes / No Effective Date File Name No Information Encounters Encounter Description Practice Location Reason(s) For Visit Diagnoses Date Provider Providers Copied on Encounter OFFICE/OUTPT Visit EST-EPFHx,EPF Exam, Low MDM 15 Minutes [facility], [address] [place] [address], [address], [place] tel:[phone] [facility] Podiatry Heel Pain (chief complaint) Body mass index (BMI) 50-59.9 , adultPlantar fascial fibromatosis 0 No Information Family History Family Member Type Diagnosis Age At Onset No Information Payers Payer name Insurance type Covered libertarian ID Authoriza tion(s) Self Pay ins 09 [...]
--- OUTSIDE RECORDS SUMMARY | 2025-01-07 09:00 | XMS_ITS | Clinical Summary ---
Author Organization [facility] Address [address] [facility] 7[address] [place] [address] Care Team Providers Care Top Installer Name Role Phone Olivia Almaguer VEE Primary Care Provider [phone] Medications Alcohol Swabs (Alcohol Pads) 70 % [...] at bed time. 1 Active Vit-Fe Fumarate-FA (M-Davide Plus) 27-1 MG tablet Take 1 tablet by mouth in the morning. 2 Active Senna-Time 8.6 MG tablet TAKE 2 TABLET BY MOUTH DAILY AT BEDTIME NEEDED FOR CONSTIPATION 2 Active Immunizations Immunization Administration Dates Next Due Influenza injectable quadrivalent [...] patient's age to complete this topic Meningococcal B Vaccine Aged Out No l onger eligible based on patient's age to complete [...] has been evaluated with computer assisted technology. [facility] Mix Technician : SEE COMMENT [facility] Comment: CMG, CT(ASCP) CT screening location: [address] ??[id number] Interpretation/R esult: Negative for intraepithelial lesion or malignancy. [facility] LMP: NONE GIVEN [facility] Prev. BX: NONE [facility]IVEN [facility] Prev. PAP: NONE GIVEN [facility] Review Mix Technician : SEE COMMENT [facility] Comment: NSS, CT(ASCP) CT screening location: [address] ??[id number] SOURCE: None given [facility] Statement Of Adequacy: SEE COMMENT [facility] Comment: Satisfactory for evaluation. Endocervical/transformation zone component present. Age and/or menstrual status not provided 12/14/2020 9:14 AM EDT Nadia Fong MD LAB PATHOLOGY ORDERABLES Celsa dutta Result [facility] [address] * HPV mRNA E6/E7 (12/14/2020 9:14 AM EDT) HPV nRNA E6/E7 Not Detected Not Detected [facility] Comment: Methodology: Lacquer Coater-Mediated Amplification This assay detects E6/E7 viral messenger RNA (mRNA) from 14 high-risk HPV types (16,18,31,33,35,39,45,51,52,56,58,59,66,68). ? The analytical performance characteristics of this assay have been determined by [employer]. The modifications have not been cleared or approved by the FDA. This assay has been validated pursuant to the CLIA regulations and is used for clinical purposes. ?? For additional information, please refer to http://[employer].first[employer]/faq/QBP771d6 (This link if provided for information/ educational purposes only.) 12/14/2020 9:14 AM EDT Nadia Fong MD LAB BLOOD ORDERABLES Final Re sult Performing Organization Address [facility] Phone Number [facility] [address] * HIV 1/2 ANTIGEN/ANTIBODY,FOURTH GENERATION W/RFL (12/14/2020 8:06 AM EDT) Pathologist [facility] HIV-1/2 ANTIGEN AND ANTIBODIES, 4TH GENERATION W/ REFLEX NON-REACT MEHRAN NON-REACT MEHRAN [facility] Comment: HIV-1 antigen and HIV-1/HIV-2 [...] ? For additional information please refer to http://[employer]/faq/VZJ392 (This link is being provided for informational/ educational purposes only.) ? The performance of this assay has not been clinically validated in patients less than 2 years old. ?? 12/14/2020 8:06 AM EDT us Nadia Fong MD LAB BLOOD ORDERABLES Final Re sult Performing Organization Address [facility] Phone Number [facility] [address] from Last 3 Months or Most Recently Relevant to Health Maintenance Insurance [facility] C3 Care Teams Top Installer Relationship Specialty Start Date End Date Olivia Almaguer NP [address] [place] [id number] PCP - General Family Medicine 09/23/23
--- NOTE | 2025-01-07 09:51 | ECG_ITS ---
Test Reason : MOR OBS Blood Pressure : */* mmHG Vent. Rate : 58 BPM Atrial Rate : 58 BPM P-R Int : 122 ms QRS Dur : 82 ms QT Int : 428 ms P-R-T Axes : 47 47 26 degrees QTcB Int : 420 ms Sinus bradycardia Otherwise normal ECG No previous ECGs available Referred By: Sky Hayes Electronically Signed By:
[2025-01-07 10:11] LABS: MANUAL DIFF FLAG NO
[2025-01-07 10:48] LABS: Estimated Average Glucose 105 mg/dL; Hemoglobin A1c % 5.3 % (<6.0); Total Hemoglobin (HGBA1C) 3233.2781 umol/L
[2025-01-07 10:50] LABS: Basophils Absolute Auto 0.1 X10*3/uL (0.0-0.2); Basophils Percent Auto 0.9 % (0-2); Eosinophils Absolute Auto 0.3 X10*3/uL (0.0-0.4); Eosinophils Percent Auto 4.7 % (0-4); Hematocrit 38.8 % (37.0-47.0); Hemoglobin 12.2 g/dl (12.0-16.0); Imm Gran Abs Auto 0.02 X10*3/uL (0.00-0.03); Imm Gran Pct Auto 0.3 % (0.0-0.4); Mean Corpuscular HGB Conc 31.4 g/dl (31.0-35.0); Mean Corpuscular Hemoglobin 24.6 pg (27.0-33.0); Mean Corpuscular Volume 78.2 fL (80.0-98.0); Mean Platelet Volume 12.9 fL (9.4-12.3); Monocytes Absolute Auto 0.4 X10*3/uL (0.1-1.2); Monocytes Percent Auto 6.6 % (2-11); Neutrophils Absolute Auto 3.5 x10*3/uL (2.0-8.3); Neutrophils Percent Auto 55.5 % (45-73); Platelet Count 192 X10*3/uL (160-400); Red Blood Count 4.96 X10*6/uL (4.20-5.50); White Blood Count 6.3 X10*3/uL (4.8-10.8)
[2025-01-07 11:45] LABS: Alanine Aminotransferase 21 U/L (0-31); Alkaline Phosphatase 46 U/L (39-117); Anion Gap 11 (12-20); Aspartate Amino Transferase 17 U/L (5-31); Bilirubin Total 0.5 mg/dL (0.0-1.0); Blood Urea Nitrogen 13 mg/dL (9-16); C Reactive Protein 0.48 mg/dL (< or = 0.50); Calcium 9.2 mg/dL (8.4-10.2); Carbon Dioxide 25 mmol/L (22-29); Chloride 108 mmol/L (96-108); Cholesterol 153 mg/dL (<200); Estimated Glomerular Filt Rate > 60; Ferritin 70 ng/mL (10-250); Glucose Random 94 mg/dL (60-115); HDL Cholesterol 41 mg/dL (>40); Iron 62 mcg/dL (30-160); LDL Cholesterol Calculated 95 mg/dL (<100); Percent Iron Saturation 23 % (15-50); Potassium 4.1 mmol/L (3.3-5.1); Sodium 140 mmol/L (135-145); TSH reflex Free T4 1.44 uIU/mL (0.32-4.0); Total Iron Binding Capacity 265 mcg/dL (228-428); Triglycerides 88 mg/dL (<150); Unsaturated Iron Binding 203 ug/dL; Vitamin D 25-OH Total 12.9 ng/mL (>30)
[2025-01-07 11:46] LABS: Folate 6.7 ng/mL (> or = 4.0); Vitamin B12 738 pg/mL (200-900)
[2025-01-07 12:19] LABS: Insulin 14 uU/mL (2-29)
[2025-01-11 03:38] LABS: Zinc 66 mcg/dL (60-130)
[2025-01-12 00:33] LABS: Vitamin A 39 mcg/dL (38-98)
[2025-01-14 16:09] LABS: Vitamin B1 7 nmol/L (8-30)
== END 2025-01-07 08:45 | disposition home or self-care (01) ==
LOC: HO.US 08:44
PROVIDERS: Visit Provider Surgery
DX: Z01.818 Encounter for other preprocedural examination (principal); E66.01 Morbid (severe) obesity due to excess calories
CPT/HCPCS: 36415; 71046; 76700; 76981; 80053; 80061; 82306; 82607; 82728; 82746; 83036; 83525; 83540; 84425; 84443; 84590; 84630; 85025; 86140; 93005

== ENCOUNTER → 2025-01-07 08:54 | Outpatient (BNV) | payer OTHER, SELFPAY | PROVIDERS: Visit Provider Radiology Diagnostic Radiology | DX: R16.0 Hepatomegaly, not elsewhere classified (principal); M51.369 Other intervertebral disc degeneration, lumbar region without mention of lumbar back pain or lower extremity pain | CPT/HCPCS: 71046; 76700; 76981 ==

== ENCOUNTER 2025-01-31 08:09 | Outpatient (AMB) | payer OTHER, SELFPAY ==
--- OUTSIDE RECORDS SUMMARY | 2025-01-31 08:13 | XMS_ITS | Continuity of Care Document ---
Author Organization [facility] Address [address] [place] [address] Phone Care Team Providers Care Materials Specialist Name Role Phone Unavailable Unavailable Unavailable Procedures Procedure Date OFFICE/OUTPT Visit EST-EPFHx,EPFExam, Lo w MDM 15 Minutes Advance Directives Directive Yes / No Effective Date File Name No Information Encounters Encounter Description Practice Location Reason(s) For Visit Diagnoses Date Provider Providers Copied on Encounter OFFICE/OUTPT Visit EST-EPFHx,EPF Exam, Low MDM 15 Minutes [facility], [address] [place] [address], [id number], [place] tel:[phone] [facility] Podiatry Heel Pain (chief complaint) [...]
[2025-01-31 08:14] VITALS: BMI 52.0
--- NOTE | 2025-01-31 08:14 | A.OFFVIS_ITS ---
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* Dairy Farm Worker Required: Yes Dairy Farm Worker Services: Dairy Farm Worker Present Information Interpreted: clinical only Allergies No Known Allergies Allergy (Verified 01/31/25 08:20) Medication List - Last Reconciled 01/31/25 by Sky Hayes MD cholecalciferol (vitamin D3) 125 mcg PO DAILY ondansetron 4 mg PO Q12H pantoprazole 40 mg PO DAILY polyethylene glycol 3350 17 grams PO DAILY sucralfate 10 mL PO BID thiamine HCl (vitamin B1) 100 mg PO DAILY HPI HPI TV 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*: Details: Start time: 8.07am, End time: 8.37am ?I spent 25 minutes speaking with the patient on the phone plus an additional 5 minutes reviewing and updating records for a total of 30 minutes HPI Comments Details: Overall weight loss: 41lbs, or 11.6% TBWL Is doing 2 Celebrate Rebuild protein shakes (2 scoops in almond milk), 2.5 Celebrate protein bars and one meal (10 forks or protein, 5 forks of salad and 5 forks of rice) Exercise: [facility] Medical History (Updated 01/27/25 @ 22:24 by Sky Hayes MD) Knee pain Morbid obesity Surgical History (Updated 04/12/24 @ 09:16 by Trisha Chung CMA) Hx of section Hx of cholecystectomy Family History (Updated 04/05/24 @ 14:21 by Trisha Chung CMA) Mother Diabetes Father Diabetes Daughter No problems noted. Son Down's syndrome Social History (Updated 04/05/24 @ 14:20 by Trisha Chung CMA) Alcohol intake: never Patient Tobacco Use Status: Never used Tobacco Telehealth Telehealth Telehealth Platform: Telephone Location of provider rendering services: practice address Location of patient: address on file Patient Identification confirmed using: Name, : Yes Telehealth method: voice only Patient verbally consented to treatment: Yes Patient verbally consented to billing insurance company: Yes Patient informed of any privacy concerns related to visit: Yes Minutes spent on Phone/Video with Pt.: 30 Assessment & Plan Assessment & Plan (1) Morbid obesity: Code(s): E66.01 - Morbid (severe) obesity due to excess calories Category: Medical Plan: 1. Plan for lap sleeve gastrectomy including upper GI endoscopy. All tests has been completed and reviewed and the patient is cleared for the surgery. ?If diaphragmatic or ventral hernias are present at time of surgery, these will be repaired laparoscopically as well. Risks and complications were discussed in detail including possible conversion to an open procedure, anastomotic leak, bleeding requiring transfusion, small bowel obstruction, , DVT and pulmonary embolism, cardiac, or pulmonary complications, as intermediate complications such as anastomotic ulcer, insufficient weight loss and vitamin deficiencies. I emphasized the importance of close follow-up, adherence to instructions and good communication. So far she has proven to be an excellent communicator and very compliant with all our directions accomplishing a great weight loss. I believe that she is an excellent candidate and she is ready. 2. Preop prescriptions were provided and explained the purpose of each one. Need to be purchased preop. Start Pantoprazole now as you get it from the pharmacy, 1 pill per day. Sucralfate and Zofran are for after surgery as needed. 3. Bowel prep: please do 7 packets ?of Miralax mixing each one with a an 8oz glass of water, crystal light, gatorade zero, or propel ?on 02/06/2025 and the same amount on 02/07/2025. The Miralax you begin with one packet at a time in 8oz water or crystal light, gatorade zero, or propel ?as early in the day as you can and you do them back to back until you finish them. Continue the protein shakes during ?the bowel prep. 4. Needs to purchase 1oz medicine cups . 5. Needs to purchase Children's liquid Tylenol for postop pain control. 6. Avoid aspirin, motrin, Advil, Aleve, Meloxicam, Excedrin, Ibuprofen, Naproxyn. Tylenol is OK. 7. She needs to purchase the Celebrate multivitamins from the hospital's gift shop, chewable or pills whatever you prefer. 8. Will do basic preop blood work-up any day between Friday01/31/2025 and Friday02/04/2025 fasting for 12 hours and is scheduled to see the Anesthesiologist prior to the day of surgery. 9. Importance of adherence to postop follow-up and recommendations was underscored and she understands that. 10. Stop food and bars as of TODAY 01/31/2025 and continue with 5 Celebrate REBUILD protein shakes (TWO scoops EACH in 10oz almond milk) at 10am-12pm, 1pm- 3pm, 4pm-6pm, 7pm-9pm and 10pm to midnight 11. No soups, broths or V8 12. The patient's?medical?history has been reviewed and they are considered low risk for post op DVT and therefore DVT prophylaxis is not considered necessary. Travel after surgery was reviewed. The patient has not disclosed any travel plans during the first 30 days after surgery and they have been advised that within the first 30 days after surgery any bus, plane, train or car travel over 2 hours in duration is contraindicated due to the possibility of developing blood clots from immobility. Any travel, needs to include periods of ambulation of 10 minutes in duration every 2 hours.? Patient was instructed to discuss any plans for travel during this period with their bariatric surgeon.? 13. Please take at the day of surgery the following medications: NONE 14. Stop any control pills and don't use them for one month after surgery 15. Absolutely no smoking or vaping, or marijuana until the surgery and for at least the first 4 weeks. Only nicotine patches are allowed. 16. Send me weight measurements DAILY as of today until the day of surgery before you go to the hospital. 17. Avoid any steroids by mouth for any reason. Let me know if someone prescribes them to you 18. These instructions supersede anything else you read in the handbook, anything you watched in videos or classes or you were told by any other provider. If there is any conflict, you follow the above instructions and nothing else. Orders: Orders TSH reflex Free T4 Today E66.01 - Morbid (severe) obesity due to excess calories Prothrombin Time INR Today E66.01 - Morbid (severe) obesity due to excess calories Type and Screen Today E66.01 - Morbid (severe) obesity due to excess calories C Reactive Protein Today E66.01 - Morbid (severe) obesity due to excess c alories Insulin Today E66.01 - Morbid (severe) obesity due to excess calories Comprehensive Met. Panel Today E66.01 - Morbid (severe) obesity due to excess calories Hemoglobin A1c Today E66.01 - Morbid (severe) obesity due to excess calories Lipid Panel Today E66.01 - Morbid (severe) obesity due to excess calories Partial Thromboplastin Time Today E66.01 - Morbid (severe) obesity due to excess calories Complete Blood Count Auto Diff Today E66.01 - Morbid (severe) obesity due to excess calories Medications: New sucralfate 10 mL PO BID 600 mL 2RF K21.9 - Gastro-esophageal reflux disease without esophagitis pantoprazole 40 mg PO DAILY 90 tabs 0RF K21.9 - Gastro-esophageal reflux disease without esophagitis ondansetron Only take one every 12 hours as needed if you have nausea 4 mg PO Q12H 20 tabs 0RF nausea and vomiting R11.0 - Nausea polyethylene glycol 3350 Mix each measuring cup with 8oz of water, Crystal light, or Gatorade zero, or Propel and do 7 measuring cups on 02/06/2025 and another 7 measuring cups on 02/07/2025 17 grams PO DAILY 238 grams 0RF Z01.818 - Encounter for other preprocedural examination
== END 2025-01-31 08:37 | disposition home or self-care (01) ==
LOC: HO.HBS 08:09
PROVIDERS: Visit Provider Surgery
DX: E66.01 Morbid (severe) obesity due to excess calories (principal); Z68.43 Body mass index [BMI] 50.0-59.9, adult
CPT/HCPCS: 99499

== ENCOUNTER → 2025-01-31 08:09 | Outpatient (BNVA) | payer OTHER, SELFPAY | PROVIDERS: Visit Provider Surgery ==

== ENCOUNTER 2025-02-03 06:51 | Day surgery (SDC) | payer OTHER, SELFPAY ==
--- OUTSIDE RECORDS SUMMARY | 2024-12-22 15:05 | XMS_ITS | Clinical Summary ---
Author Organization [employer] Address [address] [place] [address] [address] [place] [address] Care Team Providers Care Financial Report Service Sales Agent Name Role Phone Olivia Almaguer VEE Primary Care Provider [phone] Medications Alcohol Swabs (Alcohol Pads) 70 % [...] with computer assisted technology. [facility] Plow Holder : SEE COMMENT [facility] Comment: CMG, CT(ASCP) CT screening location: [address] ??[address] Interpretation/R esult: Negative for intraepithelial lesion or malignancy. [facility] LMP: NONE GIVEN [facility] Prev. BX: NONE GIVEN [facility] Prev. PAP: NONE GIVEN [facility] Review Plow Holder : SEE COMMENT [facility] Comment: NSS, CT(ASCP) CT screening location: [address] ??[address] SOURCE: None given [facility] Statement Of Adequacy: SEE COMMENT [facility] Comment: Satisfactory for evaluation. Endocervical/transformation zone component present. Age and/or menstrual status not provided 12/14/2020 9:14 AM EDT Nadia Fong MD LAB PATHOLOGY ORDERABLES Celsa dutta Result [facility] [address] * HPV mRNA E6/E7 (12/14/2020 9:14 AM EDT) HPV nRNA E6/E7 Not Detected Not Detected [facility] Comment: Methodology: Landscaping Crew Leader-Mediated Amplification This assay detects E6/E7 viral messenger RNA (mRNA) from 14 high-risk HPV types (16,18,31,33,35,39,45,51,52,56,58,59,66,68). ? The analytical performance characteristics of this assay have been determined by 5 examples. The modifications have not been cleared or approved by the FDA. This assay has been validated pursuant to the CLIA regulations and is used for clinical purposes. ?? For additional information, please refer to http://TrendBent.Sendah Direct/faq/VLI078n6 (This link if provided for information/ educational purposes only.) 12/14/2020 9:14 AM EDT Nadia Fong MD LAB BLOOD ORDERABLES Final Re sult Performing Organization Address [facility] Phone Number [facility] [address] * HIV 1/2 ANTIGEN/ANTIBODY,FOURTH GENERATION W/RFL (12/14/2020 8:06 AM EDT) HIV-1/2 ANTIGEN AND ANTIBODIES, 4TH GENERATION W/ REFLEX NON-REACT MEHRAN NON-REACT MEHRAN [facility] Comment: HIV-1 antigen and HIV-1/HIV-2 [...] ? For additional information please refer to http://TrendBent.ClickFacts.Giftxoxo/faq/NFM358 (This link is being provided for informational/ educational purposes only.) ? The performance of this assay has not been clinically validated in patients less than 2 years old. ?? 12/14/2020 8:06 AM EDT Nadia Fong MD LAB BLOOD ORDERABLES Final Re sult Performing Organization Address [facility] de Phone Number [facility] [address] from Last 3 Months or Most Recently Relevant to Health Maintenance Insurance [place] C3 Care Teams Financial Report Service Sales Agent Relationship Specialty Start Date End Date Olivia Almaguer NP [address] [place] [id number] PCP - General Family Medicine 09/23/23
--- OUTSIDE RECORDS SUMMARY | 2024-12-22 15:05 | XMS_ITS | Continuity of Care Document ---
Author Organization [facility] Address [address] [place] [address] Phone Care Team Providers Care Junior Data Analyst Name Role Phone Unavailable Unavailable Unavailable Procedures Procedure Date OFFICE/OUTPT Visit EST-EPFHx,EPFExam, Lo w MDM 15 Minutes Advance Directives Directive Yes / No Effective Date File Name No Information Encounters Encounter Description Practice Location Reason(s) For Visit Diagnoses Date Provider Providers Copied on Encounter OFFICE/OUTPT Visit EST-EPFHx,EPF Exam, Low MDM 15 Minutes [facility], [address] [place] [address], [address], [place] tel:[phone] [facility] Podiatry Heel Pain (chief complaint) Body mass index (BMI) 50-59.9 , adultPlantar fascial fibromatosis 0 No Information Family History Family Member Type Diagnosis Age At Onset No Information Payers Payer name Insurance type Covered green party ID Authoriza tion(s) Self Pay ins [...]
[2025-01-04 11:56] VITALS: BMI 58.7
--- NOTE | 2025-01-04 14:33 | HO.ANESPROP2 ---
HPI - Anesthesia Eval Consult details Narrative: 44yo F for?Upper Endoscopy BMI 58.7 Anesthesia Pre-Procedure Meds Is the patient on any of the following meds?: GLP1/DPP4 PMFSH Active Problems Active Problems: All Active Problems Knee pain (Acute) Morbid obesity (Acute) Past Medical History Medical History (Updated 06/11/24 @ 13:12 by Sky Hayes MD) Knee pain Morbid obesity Family History Family History (Updated 04/05/24 @ 14:21 by Trisha Chung CMA) Mother Diabetes Father Diabetes Daughter No problems noted. Son Down's syndrome Surgical History Surgical History (Updated 04/12/24 @ 09:16 by Trisha Chung CMA) Hx of section Hx of cholecystectomy Social History Social History (Updated 04/05/24 @ 14:20 by Trisha Chung CMA) Alcohol intake: never Patient Tobacco Use Status: Never used Tobacco Meds Allergies Allergy/AdvReac Type Severity Reaction Status Date / Time No Known Allergies Allergy Verified 11/08/24 16:08 Exam Height,Weight and Vital Signs: Height 5 ft 5 in Weight 160.118 kg Assessment and Plan Assessment Anesthesia Assessment: Chart Reviewed
--- NOTE | 2025-02-01 15:06 | P.CONAN_ITS ---
HPI - Anesthesia Eval Consult details Narrative: 44yo F for Upper Endoscopy BMI 58.7 PMFSH Active Problems Active Problems: All Active Problems Vitamin B1 deficiency (Acute) Lower lobe pneumonia (Acute) Vitamin D deficiency (Acute) Knee pain (Acute) Morbid obesity (Acute) Past Medical History Medical History Knee pain Morbid obesity Family History Family History Mother Diabetes Father Diabetes Daughter No problems noted. Son Down's syndrome Surgical History Surgical History Hx of section Hx of cholecystectomy Social History Social History Household Members: Family Housing: House Are you a primary administrator health care facility to a significant other at home: No Do you presently have visiting nurse or other home services: No Alcohol intake: never Patient Tobacco Use Status: Never used Tobacco service: No Meds Allergies Allergy/AdvReac Type Severity Reaction Status Date / Time No Known Allergies Allergy Verified 01/31/25 08:20 Exam Height,Weight and Vital Signs: Height 5 ft 5 in Weight 160.118 kg Assessment and Plan Assessment Anesthesia Assessment: Chart Reviewed
[2025-02-03 07:03] VITALS: BP 139/66; PULSE 77; RESP 20; TEMP 36.6; O2SAT 98; BMI 52.3
[2025-02-03 07:22] LABS: UPreg QC Valid YES; Urine Pregnancy NEGATIVE (NEGATIVE)
[2025-02-03] MEDS: Lactated Ringers 1,000 ML 80 ML IVCONT (07:23)
--- NOTE | 2025-02-03 07:56 | MHC.SHP ---
Pre-Procedural Eval Section A - 24 Hr Update-Section A only Date of Service: 02/03/25 The patient is an INPATIENT: No The patient has been examined within 24 hours of the surgical procedure. The History & Physical has been completed within 30 days and I have reviewed it.: Yes Section B - Complete if H&P > 30 days Chief Complaint: Morbid (severe) obesity due to excess calories Relevant Family History (Specify if Yes): No Relevant Social History: None Present Medications: None Medical History: No relevant PMH History of Previous Operations: No relevant previous surgery Allergies: Allergies Allergy/AdvReac Type Severity Reaction Status Date / Time No Known Allergies Allergy Verified 01/31/25 08:20 Review of Systems Sugical H&P ROS: Negative: Constitution, Cardiovascular, Respiratory, Neurological, Psychiatric, Hem-Onc, Allergic/Immunologic, Gastrointestinal, Genitourinary, Musculoskeletal, Integumentary, Endocrine and Eyes/Ears/Nose/Throat Exam Surgical H&P Exam: Normal: HEENT, Normal: Heart, Normal: Lungs, Normal: Extremities, Normal: Abdomen, Normal: Skin and Normal: Neurological Plan Diagnosis/Plan: Unchanged (EGD to assess the stomach's anatomy. Risks of bleeding and perforation were discussed with the patient and she is in agreement with the plan.) I have reviewed the history and physical and performed a pertinent physical examination on my patient. No changes have occurred unless specified. Time Spent With Patient Time: Total time managing care of this patient today ____ minutes.
--- NOTE | 2025-02-03 08:01 | PM.OP ---
Brief Operative Note Date of Service: 02/03/25 Pre-op diagnosis: Morbid obesity Post-op diagnosis: same Procedure: PROCEDURE DATE: 02/03/2025 PREOPERATIVE DIAGNOSIS: Morbid obesity POSTOPERATIVE DIAGNOSIS: ?Same as above. Normal endoscopy PROCEDURE: Euopgpta-gaxcck-wjgopwtvjkyz with biopsies Surgeon: Mikal Hayes M.D.. Ph.D. Director Global Intelligence: None ? Anesthesia: IV sedation Estimated blood loss: ?Minimal FINDINGS AND PROCEDURE: ? OPERATIVE INDICATIONS: ?The patient is a 44 year old female known to me who is interested in bariatric surgery. Based on this information I recommended an upper endoscopy to evaluate the patient's symptoms. Risks and complications of the surgery were discussed with the patient in advance particularly the possibility of perforation or bleeding that may require surgical intervention. The patient understood the risks and was in agreement with the plan. ? PROCEDURE: After informed consent was obtained by the patient, the patient was ?transferred to the Operating Room and was placed in the supine position.? After successful induction of IV sedation, a mouth block was inserted and the patient was placed in the left lateral decubitus position. An upper endoscopy was performed next, the oropharynx and esophagus appeared within the normal limits. There was no hiatal hernia. The z-line was smooth. Two biopsies were obtained from the distal esophagus 2-3 cm proximal to the GE junction and two additional biopsies from the GE junction. The stomach was entered and it appeared to be of normal size. There was no gastritis. There was no stricture or ulcer. A biopsy was obtained from the gastric fundus and antrum. No significant bleeding was noted from any of the biopsy sites. Retroflexion of the scope confirmed a normal GE junction. The scope was then advanced into the duodenum which appeared to be normal as well. At that point the duodenum ?and the stomach were decompressed and the scope was withdrawn from the patient's mouth. The patient extubated and was transferred in stable condition to the Recovery Room for further care. I was present and performed all steps of the procedure. There were no residents to assist with this case. Julio Hayes M.D., Ph.D. Surgeon: Sky Hayes MD Anesthesia: MAC Was an Director Global Intelligence used for this Procedure?: No Estimated blood loss (mL): 0 IV fluids (mL): 400 Urine output (mL): 0 (No Gaspar to record output) Pathology: other (1) antrum x1, 2) fundus x1, 3) GE junction x2, 4) distal esophagus x2) Condition: stable Disposition: PACU
--- NOTE | 2025-02-03 08:12 | P.CONAN_ITS ---
[facility] Active Problems Active Problems: All Active Problems Vitamin B1 deficiency (Acute) Lower lobe pneumonia (Acute) Vitamin D deficiency (Acute) Knee pain (Acute) Morbid obesity (Acute) Past Medical History Medical History Knee pain Morbid obesity Functional capacity: independent ambulation Patient : No Family History Family History Mother Diabetes Father Diabetes Daughter No problems noted. Son Down's syndrome Family history of problems with anesthesia: No Surgical History Surgical History Hx of section Hx of cholecystectomy History of Problems with Anesthesia: No Social History Social History Are you a primary live in caregiver to a significant other at home: No Do you presently have visiting nurse or other home services: No Alcohol intake: never Patient Tobacco Use Status: Never used Tobacco Have you been hit, kicked, punched, or otherwise hurt by someone within the past year? If so, by whom?: No Are you DNR?: No Advance Directives: No Advance Directives Information Provided: Yes Patient : No Meds Allergies Allergy/AdvReac Type Severity Reaction Status Date / Time No Known Allergies Allergy Verified 01/31/25 08:20 Active Medications: Current Medications Lactated Ringer's (Lr) 1,000 mls @ 80 mls/hr IVCONT .[id number] SHRUTI Last Admin: 02/03/25 07:23 Dose: 80 mls/hr Exam Height,Weight and Vital Signs: Height 5 ft 5 in Weight 142.6 kg Last Vital Signs Temp 98 F 02/03/25 07:03 Pulse 77 02/03/25 07:03 Resp 20 02/03/25 07:03 BP 139/66 02/03/25 07:03 Pulse Ox 98 02/03/25 07:03 O2 Del Method Room Air 02/03/25 07:03 Pertinent Lab Results Pertinent Lab Results: Laboratory Tests 02/03/25 07:00 Urine Test NEGATIVE Airway Mallampati Class: III TM Dist: >3cm Neck ROM: Full Heart: RRR Lungs: CTA Assessment and Plan Assessment Anesthesia Assessment: Anesthesia Plan Discussed Final Anesthetic Review Family History of Problems with Anesthesia: No History of Problems with Anesthesia: No NPO: Yes ASA Class: III Patient Risk: Intermediate Procedure Risk: Low Anesthetic Plan Anesthetic Plan: MAC: Disposition: Standard PACU
[2025-02-03 08:26] VITALS: BP 121/73; PULSE 79; RESP 18; TEMP 36.4; O2SAT 98
[2025-02-03 08:40] VITALS: BP 139/71; PULSE 67; RESP 18; TEMP 36.4; O2SAT 98
--- NOTE | 2025-02-03 10:30 | HO.POSTANES ---
Post Anesthesia Evaluation Post Anesthesia Evaluation Date of Service: 02/03/25 Vital Signs: Vital Signs Temp Pulse Resp BP Pulse Ox O2 Del Method 02/03/25 08:40 97.5 F 67 18 139/71 98 Room Air 02/03/25 08:26 97.5 F 79 18 121/73 98 Room Air 02/03/25 07:03 98 F 77 20 139/66 98 Room Air Anesthesia: Monitored Mental Status: Awake Pain Control: Satisfactory Nausea/Vomiting: None Hydration: Adequate Anesthesia-Related Issues: No Anes. Related Issues
== END 2025-02-03 09:29 | disposition home or self-care (01) ==
PROVIDERS: Nurse Practitioner; Visit Provider Surgery
PROC: 0DJ08ZZ Inspection of Upper Intestinal Tract, Via Natural or Artificial Opening Endoscopic (ICD-10-PCS; CPT 43235; principal; 2025-02-03 08:10)
DX: E66.01 Morbid (severe) obesity due to excess calories (principal); Z68.43 Body mass index [BMI] 50.0-59.9, adult; K21.9 Gastro-esophageal reflux disease without esophagitis; K29.50 Unspecified chronic gastritis without bleeding; M25.569 Pain in unspecified knee; Z79.899 Other long term (current) drug therapy; Z90.49 Acquired absence of other specified parts of digestive tract
CPT/HCPCS: 43239; 81025; 88305; 88313; 88342; J2003; J2704

== ENCOUNTER → 2025-02-03 06:51 | Outpatient (BNV) | payer OTHER, SELFPAY | PROVIDERS: Visit Provider Surgery | DX: E66.01 Morbid (severe) obesity due to excess calories (principal); Z68.43 Body mass index [BMI] 50.0-59.9, adult | CPT/HCPCS: 43239 ==

== ENCOUNTER → 2025-02-04 09:08 | Outpatient (BNV) | payer OTHER, SELFPAY | PROVIDERS: Admitting Provider Surgery; Visit Provider Radiology Diagnostic Radiology | DX: M47.814 Spondylosis without myelopathy or radiculopathy, thoracic region (principal) | CPT/HCPCS: 71046 ==

== ENCOUNTER → 2025-02-04 09:51 | Outpatient (BNVA) | payer OTHER, SELFPAY | PROVIDERS: Visit Provider Physician Assistant Surgical ==

== ENCOUNTER 2025-02-08 08:27 | Inpatient (IN) | payer OTHER, SELFPAY ==
[2025-02-02 10:47] VITALS: BMI 52.1
[2025-02-04 09:03] LABS: MANUAL DIFF FLAG NO
[2025-02-04 09:13] LABS: Basophils Absolute Auto 0.1 X10*3/uL (0.0-0.2); Basophils Percent Auto 0.7 % (0-2); Eosinophils Absolute Auto 0.3 X10*3/uL (0.0-0.4); Eosinophils Percent Auto 3.2 % (0-4); Hematocrit 38.3 % (37.0-47.0); Hemoglobin 11.9 g/dl (12.0-16.0); Imm Gran Abs Auto 0.06 X10*3/uL (0.00-0.03); Imm Gran Pct Auto 0.7 % (0.0-0.4); Lymphocytes Absolute Auto 2.2 X10*3/uL (1.2-4.9); Lymphocytes Percent Auto 26.7 % (20-40); Mean Corpuscular HGB Conc 31.1 g/dl (31.0-35.0); Mean Corpuscular Hemoglobin 24.4 pg (27.0-33.0); Mean Corpuscular Volume 78.6 fL (80.0-98.0); Mean Platelet Volume 12.1 fL (9.4-12.3); Monocytes Absolute Auto 0.5 X10*3/uL (0.1-1.2); Monocytes Percent Auto 5.6 % (2-11); Neutrophils Absolute Auto 5.2 x10*3/uL (2.0-8.3); Neutrophils Percent Auto 63.1 % (45-73); Platelet Count 201 X10*3/uL (160-400); Red Blood Count 4.87 X10*6/uL (4.20-5.50); Red Cell Distribution Width 14.3 % (11.0-16.0); White Blood Count 8.3 X10*3/uL (4.8-10.8)
[2025-02-04 09:23] LABS: Partial Thromboplastin Time 29.5 SEC (26.0-36.8)
[2025-02-04 09:28] LABS: Estimated Average Glucose 103 mg/dL; Hemoglobin A1C 107.5688 umol/L; Hemoglobin A1c % 5.2 % (<6.0); Total Hemoglobin (HGBA1C) 3211.0226 umol/L
[2025-02-04 09:50] LABS: Alanine Aminotransferase 19 U/L (0-31); Albumin Level 4.1 g/dL (3.5-5.0); Alkaline Phosphatase 44 U/L (39-117); Anion Gap 9 (12-20); Aspartate Amino Transferase 16 U/L (5-31); Bilirubin Total 0.6 mg/dL (0.0-1.0); Blood Urea Nitrogen 15 mg/dL (9-16); C Reactive Protein 0.65 mg/dL (< or = 0.50); Calcium 8.9 mg/dL (8.4-10.2); Carbon Dioxide 27 mmol/L (22-29); Chloride 107 mmol/L (96-108); Cholesterol 156 mg/dL (<200); Creatinine Clr Calc Pharmacy 159.5; Estimated Glomerular Filt Rate > 60; Glucose Random 101 mg/dL (60-115); HDL Cholesterol 41 mg/dL (>40); LDL Cholesterol Calculated 99 mg/dL (<100); Sodium 139 mmol/L (135-145); Triglycerides 83 mg/dL (<150)
[2025-02-04 10:01] LABS: TSH reflex Free T4 1.18 uIU/mL (0.32-4.0)
[2025-02-04 11:25] LABS: Insulin 11 uU/mL (2-29)
--- NOTE | 2025-02-07 08:56 | P.CONAN_ITS ---
Documented by User: Shannon Diamond NP 02/07/25 08:57 HPI - Anesthesia Eval Consult details Narrative: 44yo F for Gastrectomy Sleeve -EGD, possible diaphragmatic hernia, possible ventral hernia, possible open PMFSH Active Problems Active Problems: All Active Problems Vitamin B1 deficiency (Acute) Lower lobe pneumonia (Acute) Vitamin D deficiency (Acute) Knee pain (Acute) Morbid obesity (Acute) Past Medical History Medical History Knee pain Morbid obesity Family History Family History Mother Diabetes Father Diabetes Daughter No problems noted. Son Down's syndrome Family history of problems with anesthesia: No Surgical History Surgical History Hx of section Hx of cholecystectomy History of Problems with Anesthesia: No Social History Social History Are you a primary intensive care specialist to a significant other at home: No Do you presently have visiting nurse or other home services: No Alcohol intake: never Patient Tobacco Use Status: Never used Tobacco Meds Allergies Allergy/AdvReac Type Severity Reaction Status Date / Time No Known Allergies Allergy Verified 01/31/25 08:20 Exam Height,Weight and Vital Signs: Height 5 ft 5 in Weight 141.974 kg Pertinent Lab Results Pertinent Lab Results: Laboratory Tests 02/04/25 02/04/25 08:56 09:02 WBC 8.3 RBC 4.87 Hgb 11.9 L Hct 38.3 MCV 78.6 L MCH 24.4 L MCHC 31.1 RDW 14.3 Plt Count 201 MPV 12.1 Immature Gran % (Auto) 0.7 H Neut % (Auto) 63.1 Lymph % (Auto) 26.7 [place] % (Auto) 5.6 Eos % (Auto) 3.2 Baso % (Auto) 0.7 Lymph # (Auto) 2.2 [place] # (Auto) 0.5 Eos # (Auto) 0.3 Baso # (Auto) 0.1 Abs Immat Gran (auto) 0.06 H Absolute Neuts (auto) 5.2 Absolute Nucleated RBC 0.000 Nucleated RBC % (auto) 0.0 PT 12.0 INR 1.0 APTT 29.5 Sodium 139 Potassium 4.0 Chloride 107 Carbon Dioxide 27 Anion Gap 9 L BUN 15 Creatinine 0.66 Estim Creat Clear Calc 159.5 Estimated GFR > 60 Random Glucose 101 Estimat Average Glucose 103 Hemoglobin A1c % 5.2 Insulin Level 11 Calcium 8.9 Total Bilirubin 0.6 AST 16 ALT 19 Alkaline Phosphatase 44 C-Reactive Protein 0.65 H Total Protein 7.0 Albumin 4.1 Triglycerides 83 Cholesterol 156 LDL Cholesterol, Calc 99 HDL Cholesterol 41 TSH 1.18 Blood Type A Positive Antibody Screen NEGATIVE Narrative Narrative: EKG 12/2024 Vent. Rate : 58 BPM Atrial Rate : 58 BPM P-R Int : 122 ms QRS Dur : 82 ms QT Int : 428 ms P-R-T Axes : 47 47 26 degrees QTcB Int : 420 ms Sinus bradycardia Otherwise normal ECG No previous ECGs available Assessment and Plan Assessment Anesthesia Assessment: Chart Reviewed Final Anesthetic Review Family History of Problems with Anesthesia: No History of Problems with Anesthesia: No Documented by User: Eleazar Gonzalez MD 02/08/25 09:46 PMFSH Past Medical History Medical History Knee pain Morbid obesity Cognitive capacity: normal Functional capacity: independent ambulation Patient : No Family History Family History Mother Diabetes Father Diabetes Daughter No problems noted. Son Down's syndrome Surgical History Surgical History Hx of section Hx of cholecystectomy Social History Social History Are you a primary intensive care specialist to a significant other at home: No Do you presently have visiting nurse or other home services: No Alcohol intake: never Patient Tobacco Use Status: Never used Tobacco Meds Allergies Allergy/AdvReac Type Severity Reaction Status Date / Time No Known Allergies Allergy Verified 01/31/25 08:20 Exam Exam Date and Time: 02/08/2025 Airway Mallampati Class: II TM Dist: >3cm Neck ROM: Full Heart: rrr Lungs: cta Other: oriented Assessment and Plan Final Anesthetic Review NPO: Yes ASA Class: III Final Preanesthetic Review: No Changes in Pt Med Stat, Meds/Allgs Chart Reviewed, Consent Obtained/Reviewed and Anes Risks/Benef Reviewed Patient Risk: Intermediate Procedure Risk: Intermediate Anesthetic Plan Anesthetic Plan: GA and Agree w/ Assess. and Plan Disposition: Standard PACU
[2025-02-08] VITALS (12 sets, daily range): BP systolic 112–143; BP diastolic 62–83; PULSE 60–96; RESP 14–22; TEMP 36.3–37.1; O2SAT 98–100; BMI 48.1
--- NOTE | ~2025-02-08 | XR_ITS ---
EXAMINATION: XR CHEST CLINICAL INFORMATION: J18.9 - Pneumonia, unspecified organism COMPARISON: January 07, 2025. TECHNIQUE: 2 views of the chest were obtained. FINDINGS: No consolidation, pleural effusion or pneumothorax. Cardiomediastinal silhouette size is normal. No hyperinflation. Multilevel thoracic spondylosis. Patient's large body habitus/obesity. Vascular clips right upper abdomen, likely prior laparoscopic cholecystectomy. XR/XR chest 2V IMPRESSION: No acute airspace disease. Electronically signed by: Tobias Carrillo MD 02/04/2025 09:26 AM EDT
[2025-02-08 08:42] LABS: UPreg QC Valid YES; Urine Pregnancy NEGATIVE (NEGATIVE)
[2025-02-08] MEDS: Lactated Ringers 1,000 ML 100 ML IVCONT ×3 (08:56→23:21)
--- OUTSIDE RECORDS SUMMARY | 2025-02-08 08:57 | XMS_ITS | Continuity of Care Document ---
Author Organization [facility] vices Address [address] [place] [address] Phone Care Team Providers Care Global Safety Officer Name Role Phone Unavailable Unavailable Unavailable Procedures Procedure Date OFFICE/OUTPT Visit EST-EPFHx,EPFExam, Lo w MDM 15 Minutes Advance Directives Directive Yes / No Effective Date File Name No Information Encounters Encounter Description Practice Location Reason(s) For Visit Diagnoses Date Provider Providers Copied on Encounter OFFICE/OUTPT Visit EST-EPFHx,EPF Exam, Low MDM 15 Minutes [facility], [address] [place] [address], [id number], [place] tel:[phone] [facility] Podiatry Heel Pain (chief complaint) Body [...]
--- NOTE | 2025-02-08 08:59 | PHA.MEDREC ---
Pharmacy Consult ? Medication Reconciliation Pharmacy has reviewed the medication reconciliation done by RN. Rn omitted zepbound however this is nonformulary..
--- NOTE | 2025-02-08 09:32 | MHC.SHP ---
Pre-Procedural Eval Section A - 24 Hr Update-Section A only Date of Service: 02/08/25 The patient is an INPATIENT: Yes The patient has been examined within 24 hours of the surgical procedure. The History & Physical has been completed within 30 days and I have reviewed it.: Yes Section B - Complete if H&P > 30 days Chief Complaint: Morbid obesity Relevant Family History (Specify if Yes): No Relevant Social History: None Present Medications: None Medical History: No relevant PMH History of Previous Operations: No relevant previous surgery Allergies: Allergies Allergy/AdvReac Type Severity Reaction Status Date / Time No Known Allergies Allergy Verified 01/31/25 08:20 Review of Systems Sugical H&P ROS: Negative: Constitution, Cardiovascular, Respiratory, Neurological, Psychiatric, Hem-Onc, Allergic/Immunologic, Gastrointestinal, Genitourinary, Musculoskeletal, Integumentary, Endocrine and Eyes/Ears/Nose/Throat Exam Surgical H&P Exam: Normal: HEENT, Normal: Heart, Normal: Lungs, Normal: Extremities, Normal: Abdomen, Normal: Skin and Normal: Neurological Plan Diagnosis/Plan: Unchanged I have reviewed the history and physical and performed a pertinent physical examination on my patient. No changes have occurred unless specified. Time Spent With Patient Time: Total time managing care of this patient today ____ minutes.
--- NOTE | 2025-02-08 09:33 | P.BOP_ITS ---
Brief Operative Note Date of Service: 02/08/25 Pre-op diagnosis: Morbid obesity Post-op diagnosis: same (& abdominal adhesions) Procedure: INITIAL PATIENT BMI ON PRESENTATION AT OUR OFFICE: 58.8 kg/m2 LAST BMI BEFORE SURGERY: 51.9 kg/m2 COMORBIDITIES: liver steatosis ?The patient presented to the Weight Management Program with significant obesity that was negatively impacting the patient's comorbidities as listed above.? The program is a phased program with a special focus on preoperative medical weight management to promote substantial weight loss and prepare the patients for the second phase of the program: bariatric surgery. The patient participated in an intensive weekly lifestyle ?intervention and exercise program during which the patient ?has lost between the initial office visit and the last preoperative visit 41.6 lbs, or 11.76% of initial actual body weight. It was deemed appropriate for the patient to now have bariatric surgery. In light of the current Covid-19 pandemic and the well documented strong association of obesity and increased risk of worse outcomes if infected with Covid-19 (REFERENCES: https://pubmed.ncbi.nlm.nih.gov/97509171/ ,? https://pubmed.ncbi.nlm.nih.gov/60429590/ ), any delay in undergoing bariatric surgery may lead to the patient's worsening health condition and increased?risk of more severe Covid-19 disease if infected. In addition a recent?study from [facility] published in [employer] on 08/20/2021 ([email or web address]) found that, among patients with obesity, substantial weight loss achieved with surgery was associated with improved outcomes of COVID-19 infection. The findings suggest that obesity can be a modifiable risk factor for the severity of COVID-19 infection. In addition, the patient met the BMI-criteria for bariatric surgery based on the BMI on initial presentation. The patient should not be penalized for achieving such weight loss because ?it is not sustainable long-term without surgical intervention and it was achieved in preparation for bariatric surgery ?under my direction and based on my published research ([email or web address] [email or web address]).pdf and? https://www.li.org/article/P5811-2378(66)45588-X/pdf ) ?that a 10% preoperative weight loss improves long-term weight loss after surgery and reduces perioperative complications.? Insurance carriers such as [facility] have endorsed my recommendations ?and have included in their policies criteria to include a 10% preoperative weight loss requirement. PROCEDURE: Esophago-gastroscopy, laparoscopic lysis of adhesions, laparoscopic sleeve gastrectomy and laparoscopic gastropexy INDICATIONS: This is a 44 year-old female who was electively scheduled for laparoscopic, possibly open sleeve gastrectomy. The risks and complications of the procedure were discussed with the patient in advance, particularly the possibility of ; pulmonary embolism; staple line leak; bleeding; GERD; cardiac, pulmonary, or renal complications; as well as long-term problems such as insufficient weight loss, vitamin deficiency, strictures, or ulcers. The pa tient understood all the risks, and was in agreement to proceed with surgery. DESCRIPTION OF PROCEDURE: After informed consent was obtained from the patient, the patient was given preoperative antibiotics, and was transferred to the operating room. After successful induction of general anesthesia, pneumatic compression devices were placed on both lower extremities. An upper endoscopy was performed next. The oropharynx and esophagus appeared to be within normal limits. There was no diaphragmatic hernia present. The stomach was entered. Then after all fluid and air were suctioned and the stomach was fully decompressed, the scope was withdrawn and secured in the mid esophagus. The patient was then prepped and draped in the usual sterile manner, and abdominal access was established at the right upper quadrant with the Yahaira technique. A 12 mm blunt port was inserted, and the abdomen was insufflated with CO2 to a pressure of 15 mmHg. Under direct visualization, additional ports were placed, specifically two 5 mm Versi-step ports to the left upper quadrant, and a 5 mm Versi-Step port to the right upper quadrant. 1% lidocaine plain was used to infiltrate all port sites as well as all fascia defects. There were adhesions in the abdomen from previous cholecystectomy involving the omentum and the anterior abdominal wall. Those were lysed completely with the ultrasonic device. Following that, the patient was placed in a steep reverse Trendelenburg position. An additional 5 mm port was placed to the right flank for the Mediflex retractor that was used to retract the left lobe of the liver. The gastro-esophageal fat pad was opened with the ultrasonic device (Thunderbeat, Olympus) and the anterior esophagus and hiatus were exposed. The angle of His was opened with the ultrasonic device the fundus of the stomach from any diaphragmatic and splenic attachments. I then opened the gastrocolic ligament between the transverse colon and the greater curvature of the stomach with the ultrasonic device to enter the lesser sac and facilitate the ligation of the short gastric vessels. I started at a mid-point along the greater curvature and using the Thunderbeat, all short gastric vessels were divided all the way to the angle of His until the left lexie was completely dissected at its entirety. I then divided the gastro-colic ligament distally to a distance of about 3-4 cm proximal to the pylorus.? The stomach was then divided transversely with two Endo DEN-45 purple and three DEN-6s0 articulating purple loads using the Spinal Kinetics stapler and loads. Every effort was made that the gastric sleeve had a tubular shape and an even caliber throughout. Once the sleeve resection was completed, the staple line of the gastric sleeve was reinforced with Hemoclips. The resected stomach was retrieved without difficulty from the Yahaira port. A gastropexy was then performed in order to prevent postoperative GERD and partial gastric volvulus. Several interrupted 2.0 Surgidac sutures were placed between the sleeve's staple line and the previously divided greater omentum and gastro-colic ligament using the Endo-Stitch device. ?An upper endoscopy was performed. There was no narrowing at the GE junction. The scope was easily advanced all the way to the pylorus which was clearly visualized. There was no narrowing anywhere and the sleeve's caliber was even throughout. The sleeve's staple line was inspected and there was no evidence of ischemia, bleeding or dehiscence. At that point the gastroscope was withdrawn from the patient?s mouth while we were decompressing the bowel and the stomach from any remaining air. I looked into the lesser sac to see how the sleeve was situating and it was situating well. There was no bleeding from the staple line, spleen, or short gastric vessels. The Mediflex retractor was removed, and the undersurface of the liver was inspected and there was no bleeding. The patient was placed in supine position. I closed the fascial defect of the 12 mm port site with a figure of eight #1 Polysorb suture. Then 30cc Ropivacaine plain with 10 mg of Dexamethasone were used to infiltrate the fascial closure as well as all skin incisions. At this point, the abdomen was deflated, all ports were removed under direct vision, and no bleeding was noted from any of the port sites. The skin incisions were irrigated with saline and were closed with 4-0 absorbable monofilament sutures. Steri-Strips and OpSites were used to cover all incisions. The patient was extubated and was transferred in stable condition to the recovery room for further care. I was present and performed all galicia parts of the procedure. Ms. Bui was the travel assistant. There were no residents to assist with this case. Julio Hayes MD, PhD, FACS Surgeon: Sky Hayes MD Anesthesia: GETA, local and other (TAP block) Was an Minibus Driver used for this Procedure?: No Minibus Driver: Tianna Bui Estimated blood loss (mL): 10 IV fluids (mL): 2,000 Urine output (mL): 0 (No Gaspar to record output) Pathology: other (1) Stomach, 2) gastro-esophageal fat pad) Condition: stable Disposition: PACU
--- NOTE | 2025-02-08 09:37 | P.PNGS_ITS ---
Subjective Subjective Date of Service: 02/09/25 Interval history: Feels well. Mild incisional pain. She is tolerating phase 1 bariatric diet Physical Exam 2 Vital Signs: Vital Signs: Last Vital Signs Temp 98.1 F 02/08/25 08:44 Pulse 96 02/08/25 08:44 Resp 18 02/08/25 08:44 BP 113/71 02/08/25 08:44 Pulse Ox 99 02/08/25 08:44 O2 Del Method Room Air 02/08/25 08:44 BMI result Body Mass Index 48.1 GI: Inspection: Yes normal to inspection and Yes incision (clean, dry and intact) Palpation (GI): Soft to palpation Extrem: Right lower extremity: normal to inspection (no calf tenderness) L eft lower extremity: normal to inspection (no calf tenderness) Objective Data Active Medications Lactated Ringer's (Lr) 1,000 mls @ 100 mls/hr IVCONT .Q10H SHRUTI Stop: 02/08/25 11:29 Last Admin: 02/08/25 08:56 Dose: 100 mls/hr Documented By: OR[place]O Lactated Ringer's (Lr) 1,000 mls @ 999 mls/hr IV .Q1H1M SHRUTI Stop: 02/08/25 10:30 Labs 02/08/25 12:58 02/08/25 12:58 Labs: Laboratory Results - last 24 hr 02/08/25 08:30 Urine Test NEGATIVE Procedures Date of Service Date of Service: 02/09/25 Progress Note: A&P Assessment and plan (1) Morbid obesity: Status: Acute Assessment and Plan: s/p laparoscopic sleeve gastrectomy, lysis of adhesions and gastropexy Doing well Will check am labs and if OK the patient will be discharged home (2) Intra-abdominal adhesions: Status: Acute (3) S/P laparoscopic sleeve gastrectomy: Status: Acute Time Spent With Patient Time: Total time managing care of this patient today ____ minutes. Quality Stroke Does the patient have a stroke diagnosis?: No VTE Prior VTE?: No VTE Risk Level:: Surgical - moderate VTE Device Contraindication: N/A - Device Ordered VTE Drug Contraindication: Treatment Not Indicated
[2025-02-08] MEDS: ceFAZolin Sodium/Dextrose,Iso 2 GM/50 ML PIGGYBACK IV ×2 (10:00→14:56)
[2025-02-08] MEDS: Acetaminophen 1,000 MG/100 ML PIGGYBACK 400 MG IV (10:05)
[2025-02-08] MEDS: Aprepitant 32 MG/4.4 ML VIAL IVPUSH (12:09)
--- NOTE | 2025-02-08 12:17 | PM.DS ---
DS: Providers Provider Date of Service: 02/09/25 Date of admission: 02/08/25 08:27 Date of discharge: 02/09/25 Primary care physician: Unknown Physician DS: Diagnosis Discharge Diagnosis (1) Morbid obesity: Status: Acute DS: Summary Hospital Course Hospital Course: ADMITTING DIAGNOSIS: morbid obesity, knee pain DISCHARGE DIAGNOSIS: same, s/p laparoscopic sleeve gastrectomy and gastropexy PAST SURGICAL HISTORY:? Hx of section Hx of cholecystectomy PROCEDURE: upper endoscopy, laparoscopic sleeve gastrectomy and gastropexy DISCHARGE SUMMARY: History of Present Illness: The patient is a?44 year-old woman with a BMI of?48.1 kg/m2 and associated co-morbidities as described above. The patient had extensive work-up, lost?65 lbs preoperatively and was electively scheduled for laparoscopic, possible open sleeve gastrectomy and gastropexy. Risks and complications of the surgery were discussed with the patient in advance, particularly the possibility of , pulmonary embolism, anastomotic leak, bleeding, bowel injury, GERD, cardiac, renal or pulmonary complications. The patient understood all the risks and was in agreement with the surgical plan. Hospital Course: The patient underwent an uneventful laparoscopic sleeve gastrectomy with gastropexy on the day of admission. Postoperatively, the patient was transferred to the surgical floor. The patient received IV acetaminophen and IV Dilaudid for pain control. Patient was started on bariatric phase 1 diet POD #0. On postoperative day one, the patient was feeling well without nausea, vomiting, fevers, or tachycardia. The patient had some mild incisional pain and the abdomen was soft.? ? On the morning of postoperative day one, the patient was continued on 1 ounce of water or ice every half hour. During the day, the patient did fairly well, having some incisional pain, but able to ambulate adequately and to tolerate liquids well. Since the patient is doing well, we decided that the patient was ready to be discharged. The patient was given instructions to follow-up in office next week and to call the office for any fever over 101, persistent abdominal pain, nausea, vomiting, GERD, symptoms of DVT such as calf tenderness, or leg swelling, or pulmonary embolism such as chest pain or shortness of breath.? The patient was also instructed to drink 40-60 ounces of liquids per day using the 1-ounce cups. The patient had been given prescriptions for Tylenol for pain, Zofran prn for nausea, and pantoprazole and carafate previously. The patient was encouraged to ambulate and use the incentive spirometer. The patient was allowed to shower, but no baths, and encouraged to stay active at home. All of these instructions were given to the patient personally. All questions were answered and the patient understood all instructions, the instructions were also given to the patient in print. Time Attestation Discharge Coordination Time (in mins): 30 Quality: Safe Use of Opioids Does Pt have an Active Cancer Diagnosis on the Problem List?: No Quality: Stroke Does the patient have a stroke diagnosis?: No Physical Exam Vital Signs: Vital Signs: Last Vital Signs Temp 98.7 F 02/08/25 12:08 Pulse 78 02/08/25 12:13 Resp 16 02/08/25 12:13 BP 140/79 H 02/08/25 12:13 Pulse Ox 99 02/08/25 12:13 O2 Del Method Room Air 02/08/25 12:13 BMI result Body Mass Index 48.1 DS: Data Data Completed and Pending Pending studies at discharge: Pending at discharge 02/08/25 11:11 Surgical [PTH] Routine Labs on day of discharge: Laboratory Results - last 24 hr 02/08/25 08:30 Urine Test NEGATIVE Discharge Plan Discharge Anticipated Discharge Date/Time: 02/09/25 10:00 Patient Disposition: Home, Self-Care Discharge Diagnosis: s/p laparoscopic sleeve gastrectomy with gastropexy Referrals: Physician,Unknown J [Primary Care Provider] - 1 Week Discharge Medications: Continued pantoprazole 40 mg tablet,delayed release (DR/EC) 40 mg PO DAILY Qty: 90 0RF sucralfate 100 mg/mL suspension 10 ml PO BID Qty: 600 2RF ondansetron 4 mg tablet,disintegrating 4 mg PO Q12H Qty: 20 0RF Rx Instructions: Only take one every 12 hours as needed if you have nausea Discontinued cholecalciferol (vitamin D3) 125 mcg (5,000 unit) capsule 125 mcg PO DAILY Qty: 90 0RF thiamine HCl (vitamin B1) 100 mg tablet 100 mg PO DAILY Qty: 90 0RF polyethylene glycol 3350 17 gram/dose powder 17 g PO DAILY Qty: 238 0RF Rx Instructions: Mix each measuring cup with 8oz of water, Crystal light, or Gatorade zero, or Propel and do 7 measuring cups on 02/06/2025 and another 7 measuring cups on 02/07/2025 Discharge Orders: Discharge Order (Routine); Ordered 02/09/25 Ordered By: Sky Hayes Activity on Discharge: As tolerated Stand Alone Forms: Patient Portal Discharge page Print Language: Telugu Care Plan Goals: weight loss Health Concerns: morbid obesity Plan of Treatment: No tub baths, sex or returning to work until discussed at first post op appointment. No alcohol, tobacco or illegal drug use. Continue to use incentive spirometer hourly while awake. Walk in home for 5- 10 minutes every 2 hours during the first week. Wear abdominal binder with activity. Follow all meal plan instructions from your bariatric surgeon. Review bariatric handbook and call with any questions. Discharge Instructions 1. Please call your doctor or come back to the emergency room should any new symptoms arise. 2. Activity: abstain from alcohol,? limited stair climbing, no bending, no driving, no exercise, no illicit substances, no lifting, no sex, no tub bath, no work. 4. Diet: follow your bariatric surgeon's recommendations for advancing diet. 5. Dressing Change/Wound Care: Your incisions are covered with waterproof dressings. You can shower with these and pat dry. Do not rub over dressings or incisions. If the area is tender, you may apply an ice pack for short intervals (no more than 20 minutes on, followed by at least 20 minutes off). Do not apply heat. Do not use creams, lotions, or topical antibiotics unless instructed to do so by your surgeon. 6. Call your doctor if: - Your temperature exceeds 101.5 F - You experience excessive pain or swelling - You have an unexpected reaction to medication - You have excessive bleeding - You experience continued vomiting/nausea - Your incision begins to separate - Your incision shows signs of infection such as increased redness, swelling, excessive pain, heat, or drainage (light blood or clear fluid is normal) General instructions: No lifting greater than 10 lbs for the next 6 weeks[address] within 24 hours of taking narcotic pain medications. If you do not move your bowels in the next 2 days, please take milk of magnesia over the counter. Please follow the post op diet and do not advance your diet until instructed by your surgeon or until you are seen in the office in about 1 week. Please walk around your home every hour or two to prevent blood clots from forming in your legs. You do not need to wake from sleeping to walk. Please sleep in a bed or couch to prevent kinking at the hips and knees. Please take your incentive spirometer (your lung enterprise business architect) home with you and use it for the next few days to prevent pneumonias. You may shower; no hot tubs, baths or swimming pools. Please make sure you are consuming 40-60 ounces of total fluids per day. Avoid all carbonation. Please call the office with any questions or concerns such as increasing abdominal pain, fever, chills, shortness of breath, chest pain, leg pain or swelling, or redness or drainage from your incisions. Do not hesitate to contact the office with any questions at . The patient's medical history has been reviewed and they are considered low risk for post op DVT and therefore DVT prophylaxis is not considered necessary. Travel after surgery was reviewed. The patient has not disclosed any travel plans during the first 30 days after surgery and they have been advised that within the first 30 days after surgery any bus, plane, train or car travel over 2 hours in duration is contraindicated due to the possibility of developing blood clots from immobility. Any travel, needs to include periods of ambulation of 10 minutes in duration every 2 hours.? The patient was instructed to discuss any plans for travel during this period with their bariatric surgeon. Assessment: s/p laparoscopic sleeve gastrectomy with gastropexy Discharge Date/Time: 02/09/25 09:32
[2025-02-08 13:14] LABS: Hematocrit 36.8 % (37.0-47.0); Hemoglobin 11.8 g/dl (12.0-16.0)
[2025-02-08 13:29] LABS: Anion Gap 11 (12-20); Blood Urea Nitrogen 12 mg/dL (9-16); Calcium 8.6 mg/dL (8.4-10.2); Carbon Dioxide 24 mmol/L (22-29); Chloride 106 mmol/L (96-108); Creatinine Clr Calc Pharmacy 156.5; Estimated Glomerular Filt Rate > 60; Glucose Random 125 mg/dL (60-115); Potassium 4.2 mmol/L (3.3-5.1); Sodium 137 mmol/L (135-145)
[2025-02-08] MEDS: Acetaminophen 1,000 MG/100 ML PIGGYBACK 16.7 MG IV ×2 (16:08→22:01)
[2025-02-08] MEDS: Famotidine/PF 20 MG/2 ML VIAL IVPUSH (20:35)
[2025-02-08] MEDS: 0.9 % Sodium Chloride Flush 3 ML SYRINGE IVFLUSH (20:35)
[2025-02-09 02:37] VITALS: BP 117/60; PULSE 50; RESP 18; TEMP 36.2; O2SAT 97
[2025-02-09] MEDS: Acetaminophen 1,000 MG/100 ML PIGGYBACK 16.7 MG IV (04:00)
[2025-02-09 07:07] VITALS: BP 103/56; PULSE 63; RESP 18; TEMP 37.1; O2SAT 96
[2025-02-09] MEDS: Famotidine/PF 20 MG/2 ML VIAL IVPUSH (07:24)
[2025-02-09] MEDS: 0.9 % Sodium Chloride Flush 3 ML SYRINGE IVFLUSH (07:24)
--- NOTE | 2025-02-09 07:48 | HO.POSTANES ---
Post Anesthesia Evaluation Post Anesthesia Evaluation Date of Service: 02/09/25 Vital Signs: Vital Signs Temp Pulse Resp BP Pulse Ox O2 Del Method 02/09/25 07:07 98.7 F 63 18 103/56 L 96 Room Air 02/09/25 02:37 97.2 F 50 18 117/60 97 Room Air 02/08/25 23:37 97.4 F 60 16 112/62 98 Room Air Anesthesia: General Endotracheal-GETA Mental Status: Awake Pain Control: Satisfactory Nausea/Vomiting: None Hydration: Adequate Anesthesia-Related Issues: No Anes. Related Issues
[2025-02-09 08:04] LABS: MANUAL DIFF FLAG NO
[2025-02-09 08:07] LABS: Basophils Percent Auto 0.2 % (0-2); Hematocrit 36.3 % (37.0-47.0); Hemoglobin 11.8 g/dl (12.0-16.0); Imm Gran Abs Auto 0.05 X10*3/uL (0.00-0.03); Imm Gran Pct Auto 0.5 % (0.0-0.4); Lymphocytes Absolute Auto 1.7 X10*3/uL (1.2-4.9); Lymphocytes Percent Auto 16.1 % (20-40); Mean Corpuscular HGB Conc 32.5 g/dl (31.0-35.0); Mean Corpuscular Volume 76.9 fL (80.0-98.0); Monocytes Absolute Auto 0.5 X10*3/uL (0.1-1.2); Monocytes Percent Auto 4.7 % (2-11); Neutrophils Absolute Auto 8.2 x10*3/uL (2.0-8.3); Neutrophils Percent Auto 78.5 % (45-73); Platelet Count 230 X10*3/uL (160-400); Red Blood Count 4.72 X10*6/uL (4.20-5.50); Red Cell Distribution Width 13.9 % (11.0-16.0); White Blood Count 10.4 X10*3/uL (4.8-10.8)
[2025-02-09 08:22] LABS: Anion Gap 11 (12-20); Blood Urea Nitrogen 7 mg/dL (9-16); Calcium 8.8 mg/dL (8.4-10.2); Carbon Dioxide 26 mmol/L (22-29); Chloride 107 mmol/L (96-108); Creatinine Clr Calc Pharmacy 185.5; Estimated Glomerular Filt Rate > 60; Glucose Random 102 mg/dL (60-115); Potassium 4.2 mmol/L (3.3-5.1); Sodium 140 mmol/L (135-145)
--- NOTE | 2025-02-09 08:47 | MHC.CM.PN ---
pt dcd home self care
--- NOTE | 2025-02-09 09:41 | MHC.CM.PN ---
pt dcd home n/s pt lives with and children
== END 2025-02-09 09:32 | disposition home or self-care (01) | DRG 403 ==
LOC: HO.SSSA 12:16 → HO.S3 12:52
PROVIDERS: Nurse Practitioner; Physician Assistant Surgical; Admitting Provider Surgery; Visit Provider Surgery
PROC: 0DB64Z3 Excision of Stomach, Percutaneous Endoscopic Approach, Vertical (ICD-10-PCS; CPT 43845; principal; 2025-02-08 10:20)
DX: E66.01 Morbid (severe) obesity due to excess calories (principal); K76.0 Fatty (change of) liver, not elsewhere classified; K66.0 Peritoneal adhesions (postprocedural) (postinfection); Z79.899 Other long term (current) drug therapy; Z68.43 Body mass index [BMI] 50.0-59.9, adult
CPT/HCPCS: 36415; 71046; 80048; 80053; 80061; 81025; 83036; 83525; 84443; 85014; 85018; 85025; 85610; 85730; 86140; 86850; 86900; 86901; 88304; 88307; 88342; A4649; C9145; J0131; J0690; J1100; J1171; J1308; J2003; J2405; J2704; J2795; J3010; J7120

== ENCOUNTER → 2025-02-08 08:27 | Outpatient (BNV) | payer OTHER, SELFPAY | PROVIDERS: Admitting Provider Surgery; Visit Provider Surgery | DX: E66.01 Morbid (severe) obesity due to excess calories (principal); K66.0 Peritoneal adhesions (postprocedural) (postinfection); Z98.84 Bariatric surgery status | CPT/HCPCS: 43659; 43775; 99024; 99499 ==

== ENCOUNTER 2025-02-16 10:46 | Outpatient (AMB) | payer OTHER, SELFPAY ==
--- OUTSIDE RECORDS SUMMARY | 2020-02-10 10:20 | XMS_ITS | Continuity of Care Document ---
Author Organization [facility] vices Address [address] [place] [address] Phone Care Team Providers Care Director Of Gift Planning Name Role Phone Unavailable Unavailable Unavailable Procedures Procedure Date OFFICE/OUTPT Visit EST-EPFHx,EPFExam, Lo w MDM 15 Minutes Advance Directives Directive Yes / No Effective Date File Name No Information Encounters Encounter Description Practice Location Reason(s) For Visit Diagnoses Date Provider Providers Copied on Encounter OFFICE/OUTPT Visit EST-EPFHx,EPF Exam, Low MDM 15 Minutes [facility], [address] [place] [address], [address], [place] tel:[phone] [facility] Podiatry Heel Pain (chief complaint) Body mass index (BMI) 50-59.9 , adultPlantar fascial fibromatosis 0 No Information Family History Family Member Type Diagnosis Age At Onset No Information Payers Payer name Insurance type Covered republican ID Authoriza tion(s) Self Pay ins 09 [...] Information Instructions Date Instruction Additional Infor mation Dietary management e ducation, guidance, and counseling Related to Body mass index (BMI) 50.0-59.9, adult Weight monitoring Related to Bod y mass index (BMI) 50.0-59.9, adult Assessments Type Assessment Date assessment Body mass index (BMI) 50.0-59.9, adult assessment Plantar fascial fibromatosis Jan Patient Care Teams Name Effective Dates (start - stop) Status Members No Information
--- NOTE | 2025-02-16 11:06 | A.OFFVIS_ITS ---
VS Expanded 02/16/25 11:24 BP 129/75 Blood Pressure Location Rt brachial Blood Pressure Position Sitting Pulse 67 Pulse Source Pulse Oximeter Temp 96.7 F L Temperature Source Temporal Artery Scan Pulse Oximetry 98 Oxygen Delivery Method Room Air Height 5 ft 5 in Weight 299 lb 9.6 oz BMI 49.9 Body Fat % 5.6 Body Fat Mass 136.4 Fat Free Mass 163.0 Visceral Fat Rating 31.0 Body Water % 39.5 Body Water Mass 118.2 Muscle Mass/Score 155.0 Basal Metabolic Rate/Score 2,321 Intake Visit Reasons: OV PO LSG 02/08/2025 Quality Control Microbiology Supervisor Required: Yes Quality Control Microbiology Supervisor Services: Quality Control Microbiology Supervisor Present Quality Control Microbiology Supervisor Name: hospital cmi Allergies No Known Allergies Allergy (Verified 02/16/25 11:26) Medication List - Last Reconciled 02/16/25 by POLY Luo pantoprazole 40 mg PO DAILY sucralfate 10 mL PO BID HPI Comments Details: Patient is a pleasant 44-year-old female who returns to the office today in follow-up. She is approximately 8 days post sleeve gastrectomy performed on 02/08/2025. Tolerating 3 celebrate rebuild shakes with 2 scoops each and proximally 40 oz of fluids. She has moved her bowels. Denies any pain. [facility] Medical History (Updated 02/11/25 @ 00:02 by Teodoro Hernandez) Lower lobe pneumonia Knee pain Morbid obesity Surgical History (Updated 02/16/25 @ 11:27 by Trisha Chung CMA) S/P laparoscopic sleeve gastrectomy Hx of section Hx of cholecystectomy Family History Mother Diabetes Father Diabetes Daughter No problems noted. Son Down's syndrome Social History Household Members: Family Housing: House Are you a primary career law clerk to a significant other at home: No Do you presently have visiting nurse or other home services: No Alcohol intake: never Patient Tobacco Use Status: Never used Tobacco service: No Physical Exam Vital Signs: Last Vital Signs Temp 96.7 F L 02/16/25 11:24 Pulse 67 02/16/25 11:24 BP 129/75 02/16/25 11:24 Pulse Ox 98 02/16/25 11:24 Oxygen Delivery Method Room Air 02/16/25 11:24 BMI result Body Mass Index 49.9 GI Inspection: Yes incision (Clean, dry, intact.) Assessment & Plan Assessment & Plan (1) S/P laparoscopic sleeve gastrectomy: Code(s): Z98.84 - Bariatric surgery status Category: Surgical Plan: POD 8 s/p LSG on 02/08/[address] Hayes Weight loss prior to surgery was 41.7 pounds or 11.7 % TBWL. Original weight on 06/11/2024 was 353.8 pounds and op weight was 312.1 pounds. Be sure to text Dr Hayes exactly 1 week after surgery your weight from your home scale so he can adjust your meal plan. Continue meal plan until f/u clarice Parrish in 2 weeks May shower, no submersion in bath for another week Continue abdominal binder with activity and exercise for the next 2 weeks. Exercise prior to surgery was treadmill and may resume No abdominal exercises for 6 weeks post operatively Will be emailed link to post op video for review Reminded of the pace of drinking, 2 mL per minute, 1 oz/15 min.
[2025-02-16 11:24] VITALS: BP 129/75; PULSE 67; TEMP 35.9; O2SAT 98; BMI 49.9
== END 2025-02-16 11:44 | disposition home or self-care (01) ==
LOC: HO.HBS 10:46
PROVIDERS: Visit Provider Physician Assistant Surgical
DX: Z98.84 Bariatric surgery status (principal)
CPT/HCPCS: 99024

== ENCOUNTER → 2025-02-16 10:46 | Outpatient (BNVA) | payer OTHER, SELFPAY | PROVIDERS: Visit Provider Physician Assistant Surgical | DX: Z98.84 Bariatric surgery status (principal) | CPT/HCPCS: 99212 ==

== ENCOUNTER 2025-02-17 09:19 | Outpatient (AMB) | payer OTHER, SELFPAY ==
--- OUTSIDE RECORDS SUMMARY | 2020-02-10 10:20 | XMS_ITS | Continuity of Care Document ---
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 Name Role Phone Unavailable Unavailable Unavailable Procedures Procedure Date OFFICE/OUTPT Visit EST-EPFHx,EPFExam, Lo w MDM 15 Minutes Advance Directives Directive Yes / No Effective Date File Name No Information Encounters Encounter Description Practice Location Reason(s) For Visit Diagnoses Date Provider Providers Copied on Encounter OFFICE/OUTPT Visit EST-EPFHx,EPF Exam, Low MDM 15 Minutes [facility], [address] [place] [address], [id number], [place] tel:[phone] [facility] Podiatry Heel Pain (chief complaint) Body mass index (BMI) 50-59.9 , adultPlantar fascial fibromatosis 0 No Information Family History Family Member Type Diagnosis Age At Onset No Information Payers Payer name Insurance type Covered constitution party ID Authoriza tion(s) Self Pay ins 09 Social History Type Description Quantity Date Captured Comments Alcohol Use Details Unknown Caffeine Use Details Unknown Tobacco Use Status Current non-smoker 20 Smoking Status Never smoker Non-Smoking Tobacco Use Details : No Details Available : No Details Available Sex Female Sexual Orientation Choose not to disclose Gender Identity Choose not to disclose Vital Signs Date / Time: Height Weight BMI Pulse Rate Blood Pressure Temperature Respiratory Rate Body Surface Area Head Circumference Head Circ. Percentile Wt./Charles. Percentile BMI percentile Pulse Ox Inhaled Ox 3:04 PM 64.00 in 156.489 kg (345.00 lbs) 59.2 2 kg/m eter (2) 92 /min 131/89 mm[Hg] 98.20 F 16 /min 99 % 21 % Chief Complaint And Reason For Visit From encounter dated '02/10/2020 14:20'. Heel Pain (chief complaint) Reason For Referral Reason For Referral No Information Plan Of Treatment Date Type Action Status Goal Dietary management education , guidance, and counseling completed History Of Present Illness Encounter Date Complaint History Of Prese nt Illness Heel Pain Functional Status Date Functional Assessmen t No Information Instructions Date Instruction Additional Infor mation Weight monitoring Related to Bod y mass index (BMI) 50.0-59.9, adult Dietary management e ducation, guidance, and counseling Related to Body mass index (BMI) 50.0-59.9, adult Assessments Type Assessment Date assessment Body mass index (BMI) 50.0-59.9, adult assessment Plantar fascial fibromatosis Jan Patient Care Teams Name Effective Dates (start - stop) Status Members No Information
--- NOTE | 2025-02-17 09:05 | A.OFFWM_ITS ---
Intake Intake Visit Reasons: TV PO LSG 02/08/2025 Allergies No Known Allergies Allergy (Verified 02/16/25 11:26) PFSH Medical History (Updated 02/11/25 @ 00:02 by Teodoro Hernandez) Lower lobe pneumonia Knee pain Morbid obesity Surgical History (Updated 02/16/25 @ 11:27 by Trisha Chung CMA) S/P laparoscopic sleeve gastrectomy Hx of section Hx of cholecystectomy Family History Mother Diabetes Father Diabetes Daughter No problems noted. Son Down's syndrome Social History Household Members: Family Housing: House Are you a primary account executive healthcare to a significant other at home: No Do you presently have visiting nurse or other home services: No Alcohol intake: never Patient Tobacco Use Status: Never used Tobacco service: No Behavioral Health Assessment Weight Management Therapy Therapy Notes Details Subjective: PT had weight loss surgery on February 08. Weight on day of surgery was 313Lbs, and weight as of yesterday 02/16/2025 299Lbs. PT denies any pain or challenge with recovery. Tolerating well the liquid plan and the goal is 50oz at day including the 3 shakes. She denies any hunger or food thoughts/cravings. She reports her mood is well and has good energy. Her , mother and sister have been very supportive. She took 1 month off from work, scheduled to return on 03/07/2025. Objective: The patient presents for a behavioral health post-operative follow-up visit. A guided emotional check-in was conducted to assess her current functioning, recovery, mood, and emotional state. Psychoeducation was provided on the emotional and psychological adjustments commonly experienced after bariatric surgery. The PHQ-9 was administered to screen for symptoms of depression. The importance of adhering to the Weight Management Program (WMP) providers' instructions was emphasized, including the pace of drinking and following the meal and exercise plan. Tips and recommendations for long-term success were also discussed. Program resources were provided, and the patient was invited to join our Facebook group to stay informed about ongoing events and activities. Assessment/Response: * Mental status: WNL * Risk reported/identified: None. Food/Weight/Diet Expectations of change The initial goal was to lose 10% of your weight before surgery, which is about 35 lbs. Ultimate weight goal: 318lbs before surgery PT started the program in May/2024 at 353Lbs Recent weight as of 11/03/2024:330Lbs. Weight as of 11/18/2024: 323Lbs Weight on day of surgery was 313Lbs, and weight as of yesterday 02/16/2025 299Lbs. Patient target weight: 150-160 after surgery. PT is implementing the following: Current meal plan: Liquid plan - 3 shakes, liquid goal 40-50oz Exercise plan: Cleared yesterday for treadmill. Scale: Yes communication w/ Provider: Tuesdays. Assessment & Plan Assessment & Plan (1) Adjustment disorder, unspecified: Code(s): F43.20 - Adjustment disorder, unspecified (2) Status post bariatric surgery: Code(s): Z98.84 - Bariatric surgery status Plan No safety concerns or issues were identified that would require ongoing behavioral health monitoring. The patient is informed about the available behavioral health support and knows how to access these resources if needed in the future. Telehealth Telehealth Telehealth [facility] Location of provider rendering services: other Location of patient: address on file Patient Identification confirmed using: Name, : Yes Telehealth method: voice only Patient verbally consented to treatment: Yes Patient verbally consented to billing insurance company: Yes Patient informed of any privacy concerns related to visit: Yes Minutes spent on Phone/Video with Pt.: 25 Coding Level of Care Code Established Pt Tele Psytx 30 mins ([id number]) Patient Type Established Diagnoses Adjustment disorder, unspecified F43.20 Status post bariatric surgery Z98.84 Time Spent (min) 25
== END 2025-02-17 09:29 | disposition home or self-care (01) ==
LOC: HO.HBST 09:19
PROVIDERS: Visit Provider Counselor Mental Health
DX: F43.20 Adjustment disorder, unspecified (principal); Z98.84 Bariatric surgery status
CPT/HCPCS: 90832

== ENCOUNTER 2025-03-17 11:40 | Outpatient (AMB) | payer OTHER, SELFPAY ==
--- OUTSIDE RECORDS SUMMARY | 2020-02-10 10:20 | XMS_ITS | Continuity of Care Document ---
Author Organization [facility] vices Address [address] [place] [address] Phone Care Team Providers Care Incident Response Specialist Name Role Phone Unavailable Unavailable Unavailable Procedures Procedure Date OFFICE/OUTPT Visit EST-EPFHx,EPFExam, Lo w MDM 15 Minutes Advance Directives Directive Yes / No Effective Date File Name No Information Encounters Encounter Description Practice Location Reason(s) For Visit Diagnoses Date Provider Providers Copied on Encounter OFFICE/OUTPT Visit EST-EPFHx,EPF Exam, Low MDM 15 Minutes [facility], [address] [place] [address], [address], [place] tel:[phone] [facility] Podiatry Heel Pain (chief complaint) Body mass index (BMI) 50-59.9 , adultPlantar fascial fibromatosis 0 No Information Family History Family Member Type Diagnosis Age At Onset No Information Payers Payer name Insurance type Covered alliance party ID Authoriza tion(s) Self Pay ins [...]
--- NOTE | 2025-03-17 11:42 | MHC.OFFVISWM ---
VS Expanded 03/17/25 11:52 BP 124/67 Blood Pressure Location Rt brachial Blood Pressure Position Sitting Pulse 77 Pulse Source Pulse Oximeter Temp 96.9 F Temperature Source Temporal Artery Scan Pulse Oximetry 99 Oxygen Delivery Method Room Air Height 5 ft 5 in Weight 293 lb 12.8 oz BMI 48.9 Body Fat % 47.4 Body Fat Mass 139.4 Fat Free Mass 54.4 Visceral Fat Rating 16.0 Body Water % 37.6 Body Water Mass 110.4 Muscle Mass/Score 146.6 Basal Metabolic Rate/Score 2,208 Intake Visit Reasons: OV PO LSG 02/08/2025 Web Analyst Required: Yes Web Analyst Services: Web Analyst Present Web Analyst Name: hospital cmi Allergies No Known Allergies Allergy (Verified 03/17/25 11:46) Medication List - Last Reconciled 03/17/25 by POLY Luo [id number] K 45 mg iron- 800 mcg-120 mcg (Bariatric Multivitamins) caps PO pantoprazole 40 mg PO DAILY sucralfate 10 mL PO BID HPI Comments Details: This?a?44?yo female who is s/p LSG without hiatal hernia repair on?02/08/2025. Presents for 1 month post op visit. Weight today is 293.8 pounds, with a BMI of 48.9. There has been a 60.5 pound weight loss,(initial weight 353.8 pounds) since starting the program on 06/11/2024 reflecting a 17.1 % total body weight loss and a weight loss of 18.3 pounds since surgery (operative weight 312.1 pounds) reflecting a 5.8 % TBWL since surgery. No complaints of nausea, emesis, abdominal pain or reflux. Reports infrequent but normal bowel movements every 2-3 days and uses stool softeners regularly. Present meal plan includes: celebrate rebuild 2 scoops at 8-10, 11-1, 2-4 in lactoses free milk Celebrate bar 5-10 Drinking 64 oz daily Exercise routine includes: treadmill 4 days per week, 30 min, 150 calories per session. Not as much as she wanted as she was taking care of her sick son. Now that he is better she intends to use it daily. [facility] Medical History (Updated 02/11/25 @ 00:02 by Background Daramona) Lower lobe pneumonia Knee pain Morbid obesity Surgical History S/P laparoscopic sleeve gastrectomy Hx of section Hx of cholecystectomy Family History Mother Diabetes Father Diabetes Daughter No problems noted. Son Down's syndrome Social History Household Members: Family Housing: House Are you a primary cattle care worker to a significant other at home: No Do you presently have visiting nurse or other home services: No Alcohol intake: never Patient Tobacco Use Status: Never used Tobacco service: No Physical Exam Const General: healthy appearing and no acute distress Resp Effort & Inspection: normal respiratory effort Auscultation: clear to auscultation bilaterally Cardio Rate: regular rate Rhythm: regular rhythm GI Auscultation: normal bowel sounds Extrem General: Yes normal to inspection Assessment & Plan Assessment & Plan (1) S/P laparoscopic sleeve gastrectomy: Code(s): Z98.84 - Bariatric surgery status Category: Surgical Plan: She will continue to communicate with Dr. Hayes to adjust her meal plan. Discussed the importance of exercise. She has a treadmill at home that does not incline. She lives close to [employer] and she is going to join the gym. I encouraged her to go to the gym 5 days per week, burn 400 calories per day and then she can use her treadmill at home on the other 2 days. She agreed with this plan. We will have her return to the office in approximately 1 month
[2025-03-17 11:52] VITALS: BP 124/67; PULSE 77; TEMP 36.1; O2SAT 99; BMI 48.9
--- OUTSIDE RECORDS SUMMARY | 2025-03-17 12:30 | XMS_ITS | Clinical Summary ---
Author Organization [employer] Address [address] [place] [address] [address] [place] [address] Care Team Providers Care Icing And Glaze Maker Name Role Phone Olivia Almaguer VEE Primary Care Provider [phone] Medications Alcohol Swabs (Alcohol Pads) 70 % [...] Date Last Done Comments Depression Screening 1982 Disability Screening 1982 Alcohol/Substance Use Screening 1994 Tobacco Screening 1994 Family Planning (PISQ) 1997 HPV Vaccines (1 - 3-dose series) 1997 Hepatitis C Screening 2000 DTaP/Tdap/Td Vaccines (1 - Tdap) 2001 Hepatitis B Vaccines (1 of 3 - 19+ 3-dose series) 2001 Mammogram 2022 COVID-19 Vaccine (2 - 2023-2 5 season) 2024 07/23/2021 Influenza Vaccine (#1) 2025 07/23/2021 SDOH Screening 05/24/2025 05/24/2024 Cervical Cancer Screening 12/14/2025 HPV/Cotest 12/14/2025 12/14/2020 Pap Smear 12/14/2025 12/14/2020 Zoster Vaccines (1 of 2) [...] Years) and At-Risk Patients (6 to 49) Years Aged Out No longer eligi ble based [...] [facility] Comment: EXPLANATORY NOTE: The Pap is a screening test for cervical cancer. It is not a diagnostic test and is subject to false negative and false positive results. It is most reliable when a satisfactory sample, regularly obtained, is submitted with relevant clinical findings and history, and when the Pap result is evaluated along with historic and current clinical information. COMMENT: This Pap test has been evaluated with computer assisted technology. [facility] Access Clinician : SEE COMMENT [facility] Comment: CMG, CT(ASCP) CT screening location: [place] [address] Interpretation/R esult: Negative for intraepithelial lesion or malignancy. [facility] LMP: NONE GIVEN [facility] Prev. BX: NONE GIVEN [facility] Prev. PAP: NONE GIVEN [facility] Review Access Clinician : SEE COMMENT [facility] Comment: NSS, CT(ASCP) CT screening location: [place] [address] SOURCE: None given [facility] Statement Of Adequacy: SEE COMMENT [facility] Comment: Satisfactory for evaluation. Endocervical/transformation zone component present. Age and/or menstrual status not provided 12/14/2020 9:14 AM EDT Nadia Fong MD LAB PATHOLOGY ORDERABLES Celsa dutta Result [facility] [address] * HPV mRNA E6/E7 (12/14/2020 9:14 AM EDT) HPV nRNA E6/E7 Not Detected Not Detected [facility] Comment: Methodology: Federal Mediation Commissioner-Mediated Amplification This assay detects E6/E7 viral messenger RNA (mRNA) from 14 high-risk HPV types (16,18,31,33,35,39,45,51,52,56,58,59,66,68). The analytical performance characteristics of this assay have been determined by [employer]. The modifications have not been cleared or approved by the FDA. This assay has been validated pursuant to the CLIA regulations and is used for clinical purposes. For additional information, please refer to [email or web address] (This link if provided for information/ educational purposes only.) 12/14/2020 9:14 AM EDT us Nadia Fong MD LAB BLOOD ORDERABLES Final Re sult Performing Organization Address [facility] Co de Phone Number [facility] [address] * HIV 1/2 ANTIGEN/ANTIBODY,FOURTH GENERATION W/RFL (12/14/2020 8:06 AM EDT) HIV-1/2 ANTIGEN AND ANTIBODIES, 4TH GENERATION W/ REFLEX NON-REACT MEHRAN NON-REACT MEHRAN [facility] Comment: HIV-1 antigen and HIV-1/HIV-2 antibodies were not detected. There is no laboratory evidence of HIV infection. PLEASE NOTE: This information has been disclosed to you from records whose confidentiality may be protected by state law. If your state requires such protection, then the state law prohibits you from making any further disclosure of the information without the specific written consent of the person to whom it pertains, or as otherwise permitted by law. A general authorization for the release of medical or other information is NOT sufficient for this purpose. For additional information please refer to [email or web address] (This link is being provided for informational/ educational purposes only.) The performance of this assay has not been clinically validated in patients less than 2 years old. 12/14/2020 8:06 AM EDT us Nadia Fong MD LAB BLOOD ORDERABLES Final Re sult Performing Organization Address [facility] Co de Phone Number [facility] [address] from Last 3 Months or Most Recently Relevant to Health Maintenance Insurance [facility] C3 Care Teams Icing And Glaze Maker Relationship Specialty Start Date End Date Olivia Almaguer NP [address] [place] [id number] PCP - General Family Medicine 09/23/23
== END 2025-03-17 12:04 | disposition home or self-care (01) ==
LOC: HO.HBS 11:40
PROVIDERS: Visit Provider Physician Assistant Surgical
DX: Z98.84 Bariatric surgery status (principal)
CPT/HCPCS: 99024

== ENCOUNTER → 2025-03-17 11:40 | Outpatient (BNVA) | payer OTHER, SELFPAY | PROVIDERS: Visit Provider Physician Assistant Surgical | DX: E66.01 Morbid (severe) obesity due to excess calories (principal); Z68.42 Body mass index [BMI] 45.0-49.9, adult; Z90.49 Acquired absence of other specified parts of digestive tract; Z90.3 Acquired absence of stomach [part of] | CPT/HCPCS: 99212 ==